=== PATIENT | male | born 1940 | race Caucasian/White ===

== ENCOUNTER → 2016-12-12 | Outpatient (CLI) | payer MEDICARE ==
--- NOTE | 2016-12-12 13:09 | MRI ---
Study: MRI of the right upper arm. Indication: STRAIN OF MUSCLE Technique: Multiplanar, multi sequence MRI of the right upper arm was obtained without intravenous contrast. Comparison: None. Findings: Within the inferior margin of the anterior deltoid musculature there is moderate intramuscular edema adjacent to the myotendinous junction indicating a grade 2 strain. No appreciable tear. This is adjacent to the external skin marker. Intracapsular portion long head biceps tendon is not visualized in the field of view. Intracapsular portion demonstrates tendinosis without appreciable tearing or significant retraction. There is intramuscular edema within the deep aspects of the supraspinatus, infraspinatus, and subscapularis muscle bellies which can indicate muscle strains. Tendinosis and attenuation of the supraspinatus tendon suspected. Examination not optimized to evaluate rotator cuff tendon tearing. Tiny glenohumeral joint effusion. Moderate AC joint osteoarthritis. Impression: Grade 2 strain of the inferior margin anterior deltoid musculature. This is adjacent to the site of external skin marker. Tendinosis of the long head biceps tendon at the intertubercular groove without definitive tear. Correlation with MRI of the right shoulder recommended to evaluate the intracapsular portion. Supraspinatus tendinosis and attenuation as well as intramuscular edema within the rotator cuff musculature. Correlation with dedicated MRI of the right shoulder recommended to better evaluate. Electronically signed by: Marvel Montano MD 12/12/2016 1:07 PM CDT
== END | disposition home or self-care (01) ==
LOC: MRI 08:55
PROVIDERS: ATTEND Family Medicine
DX: M75.21 Bicipital tendinitis, right shoulder (principal)

== ENCOUNTER 2017-05-12 12:40 | Emergency (ER) | payer MEDICARE ==
[2017-05-12 13:01] VITALS: TEMP 98.7
[2017-05-12] MEDS ORDERED: SULFA/TRIMETH 800/160 (DS) TAB 1 EA TAB PO ONE (14:37)
--- NOTE | 2017-05-12 14:40 | ED.PDOC ---
History of Present Illness - General Chief Complaint: Trauma Stated Complaint: fall Time Seen by Provider: 05/12/17 12:42 Source: patient Exam Limitations: no limitations - History of Present Illness Initial Comments: the patient is a 76-year-old male that got a little dizzy while getting up from the toilet. e did not pass out but he did fall scraping his right upper arm and a 1 inch skin tear in his left arm posteriorly extensively. The patient has 5 different skin tears along his left arm. He also has several areas of ecchymosis where family tried to pick him up. He only takes Plavix as a blood thinner. Tilt vitals are negative here today. He is in normal sinus rhythm. He is not dizzy. He is not feeling weak. He has lost probably 20 cc of blood since arrivalfrom his skin tears. He moves his extremities well. No evidence of fracture or dislocation. He is alert and oriented. He does have some mobility issues to start with. Timing/Duration: momentarily Severity: mild Improving Factors: nothing Worsening Factors: nothing Associated Symptoms: denies symptoms Allergies/Adverse Reactions: Allergies NO KNOWN ALLERGY Allergy (Verified 05/12/17 13:01) Home Medications: Ambulatory Orders Glipizide [Glipizide ER] 10 mg PO BID 05/06/14 Insulin Detemir [Levemir] 47 unit SUBCU BID 05/06/14 Insulin Lispro (Human) [Humalog] 14 unit SC TID 05/06/14 Liraglutide [Victoza] 1.8 mg SC DAILY 05/06/14 Metoprolol Succinate [Metoprolol Succinate ER] 100 mg PO DAILY 05/06/14 Tamsulosin [Flomax] 0.4 mg PO QD 05/06/14 Sulfa/Trimeth 800/160 (Ds) Tab [Bactrim DS Tab] 1 ea PO DAILY #5 tab 05/12/17 Review of Systems - Review of Systems Constitutional: States: no symptoms reported EENTM: States: no symptoms reported Respiratory: States: no symptoms reported Cardiology: States: no symptoms reported Gastrointestinal/Abdominal: States: no symptoms reported Genitourinary: States: no symptoms reported Musculoskeletal: States: other - chronic arthritic changes limiting mobility Skin: States: see HPI Neurological: States: no symptoms reported - transient dizziness as above Endocrine: States: no symptoms reported Hematologic/Lymphatic: States: easy bruising All other Systems: No Change from Baseline Past Medical History (General) - Patient Medical History Hx Seizures: No Hx Stroke: Yes Hx Dementia: No Hx Asthma: No Hx of COPD: No Hx Cardiac Disorders: No Hx Congestive Heart Failure: No Hx Pacemaker: No Hx Hypertension: Yes Hx Thyroid Disease: No Hx Diabetes: Yes Hx Gastroesophageal Reflux: No Hx Renal Disease: Yes Hx Cancer: Yes - renal canceer Hx of HIV: No Hx Hepatitis C: No Hx MRSA: No Surgical History: other - Vaccination History Hx Tetanus, Diphtheria Vaccination: No Hx Influenza Vaccination: Yes Hx Pneumococcal Vaccination: Yes - Social History Hx Tobacco Use: Yes Hx Chewing Tobacco Use: Yes - 1 can/week Hx Alcohol Use: Yes Hx Substance Use: No Hx Substance Use Treatment: No Hx Depression: No Hx Physical Abuse: No Hx Emotional Abuse: No Hx Suspected Abuse: No - Female History Patient : No Family Medical History - Family History Mother Living Status: Hx Cardiac Disease: Yes Hx Family Diabetes: Yes Father Living Status: Hx Family;Other: emphazema Physical Exam - Physical Exam General Appearance: Alert, Comfortable, No apparent distress Eye Exam: bilateral normal Ears, Nose, Throat: hearing grossly normal - he does hearbut I do suspect that he does have a slight hearing deficit, normal ENT inspection Neck: full range of motion, supple Respiratory: lungs clear, normal breath sounds, no respiratory distress, no accessory muscle use Cardiovascular/Chest: normal peripheral pulses, regular rate, rhythm, other - telemetry monitoring shows normal sinus rhythm Peripheral Pulses: radial,right: 2+, radial,left: 2+, dorsalis pedis,right: 2+, dorsalis pedis,left: 2+ Gastrointestinal/Abdominal: non tender - obese, soft Rectal Exam: deferred Back Exam: normal inspection - with the exception of the ecchymosis to the left posterior shoulder where they tried to lift him, no CVA tenderness, no vertebral tenderness Extremity: pedal edema - 2+ to bilateral lower extremities which is apparently not new 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 See history of present illness. Comments: Vital Signs - 24 hr 05/12/17 05/12/17 05/12/17 12:47 13:35 13:39 Temperature 98.7 F Pulse Rate [ 73 75 80 pulse ox] Respiratory 20 Rate Blood Pressure 147/73 123/51 139/71 [right arm] O2 Sat by Pulse 99 98 99 Oximetry 05/12/17 13:43 Temperature Pulse Rate [ 83 pulse ox] Respiratory Rate Blood Pressure 130/89 [right arm] O2 Sat by Pulse Oximetry Progress - Progress Progress: 05/12/17 14:41 the patient presents with multiple skin tears after a fall at home. No evidence of more significant musculoskeletal trauma. The patient does have significant oozing from the skin tear secondary to the Plavix. He needs to hold the Plavix for the next 48 hours. The patient's wounds were cleaned with hydrogen peroxide and then subsequently cleaned off with normal saline. Skin tears were reapproximated and 5 of them were fixed back in place with Steri- Strips. The skin tear around the elbow has a significant amount of missing skin. A Vaseline gauze was placed over this. Coban wrap over gauze was applied over the wounds to allow for a slight pressure dressing. The patient tolerated the procedure well. Wounds will need to be redressed in 24-48 hours. Steri-Strips will come off in 1-2 weeks on their own. Do not pull them off. The patient is receiving a dose of Bactrim here today for prophylactic purposes. He will be placed on Bactrim daily for 5 days. He should follow up with his primary care doctor towards the end of the week for reevaluation of the wounds. The patient's tilt test was negative today. 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 ER warnings are given for any worsening. Departure - Departure Clinical Impression: Skin tear of elbow without complication Qualifiers: Encounter type: initial encounter Laterality: left Qualified Code(s): S51.012A - Laceration without foreign body of left elbow, initial encounter Fall at home Qualifiers: Encounter type: initial encounter Qualified Code(s): W19.XXXA - Unspecified fall, initial encounter; Y92.099 - Unspecified place in other non-institutional residence as the place of occurrence of the external cause Disposition: Discharge to Home or Self Care Condition: Fair Departure Forms: ED Discharge - Pt. Copy, Patient Portal Self Enrollment Diet: low salt diet Activity: increase activity as tolerated Referrals: Hawk Caldwell MD [Primary Care Provider] - 1-5 Days Prescriptions: Sulfa/Trimeth 800/160 (Ds) Tab [Bactrim DS Tab] 1 ea PO DAILY #5 tab Home Medications: Ambulatory Orders Glipizide [Glipizide ER] 10 mg PO BID 05/06/14 Insulin Detemir [Levemir] 47 unit SUBCU BID 05/06/14 Insulin Lispro (Human) [Humalog] 14 unit SC TID 05/06/14 Liraglutide [Victoza] 1.8 mg SC DAILY 05/06/14 Metoprolol Succinate [Metoprolol Succinate ER] 100 mg PO DAILY 05/06/14 Tamsulosin [Flomax] 0.4 mg PO QD 05/06/14 Sulfa/Trimeth 800/160 (Ds) Tab [Bactrim DS Tab] 1 ea PO DAILY #5 tab 05/12/17 Additional Instructions: the patient presents with multiple skin tears after a fall at home. No evidence of more significant musculoskeletal trauma. The patient does have significant oozing from the skin tear secondary to the Plavix. He needs to hold the Plavix for the next 48 hours. The patient's wounds were cleaned with hydrogen peroxide and then subsequently cleaned off with normal saline. Skin tears were reapproximated and 5 of them were fixed back in place with Steri- Strips. The skin tear around the elbow has a significant amount of missing skin. A Vaseline gauze was placed over this. Coban wrap over gauze was applied over the wounds to allow for a slight pressure dressing. The patient tolerated the procedure well. Wounds will need to be redressed in 24-48 hours. Steri-Strips will come off in 1-2 weeks on their own. Do not pull them off. The patient is receiving a dose of Bactrim here today for prophylactic purposes. He will be placed on Bactrim daily for 5 days. He should follow up with his primary care doctor towards the end of the week for reevaluation of the wounds. The patient's tilt test was negative today. 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 ER warnings are given for any worsening.
[2017-05-12 15:20] VITALS: BP 148/71; O2SAT 95
== END 2017-05-12 15:15 | disposition home or self-care (01) ==
LOC: ER 12:40
DX: S51.012A Laceration without foreign body of left elbow, initial encounter (principal); E11.9 Type 2 diabetes mellitus without complications; I10 Essential (primary) hypertension; Z85.53 Personal history of malignant neoplasm of renal pelvis; Z79.4 Long term (current) use of insulin; Z79.02 Long term (current) use of antithrombotics/antiplatelets; W19.XXXA Unspecified fall, initial encounter; Y92.002 Bathroom of unspecified non-institutional (private) residence as the place of occurrence of the external cause

== ENCOUNTER → 2017-07-15 | Outpatient (CLI) | payer MEDICARE | LOC: GMAB 12:06 | PROVIDERS: ATTEND Family Medicine | DX: I10 Essential (primary) hypertension (principal); E13.59 Other specified diabetes mellitus with other circulatory complications; R30.0 Dysuria; Z12.5 Encounter for screening for malignant neoplasm of prostate | CPT/HCPCS: 84443; 87086; G0103 ==

== ENCOUNTER → 2017-10-20 | Outpatient (CLI) | payer MEDICARE ==
--- NOTE | 2017-10-20 10:41 | RAD ---
EXAM DESCRIPTION: Pelvis CLINICAL HISTORY: 76 years Male, HIP PAIN COMPARISON: None. TECHNIQUE: AP radiograph of the pelvis was performed. FINDINGS: The pelvic ring appears grossly intact on this single AP radiograph. No acute fracture or dislocation. Bilateral sacroiliac joints appear normal. Mild degenerative changes are identified in bilateral hip joints. The visualized lumbo-sacral spine demonstrates mild to moderate degenerative changes. IMPRESSION: Single AP radiograph of the pelvis demonstrates grossly intact pelvic ring. Electronically signed by: Madelyn Tee MD 10/20/2017 10:39 AM CDT
== END ==
LOC: RAD 08:01
PROVIDERS: ATTEND Orthopaedic Surgery
DX: M25.551 Pain in right hip (principal); M25.552 Pain in left hip

== ENCOUNTER 2017-11-17 18:42 | Emergency (ER) | payer MEDICARE ==
--- NOTE | 2017-11-17 19:57 | RAD ---
EXAM DESCRIPTION: Chest,1 View CLINICAL HISTORY: cough COMPARISON: None. FINDINGS: Cardiac silhouette is within normal limits. There is no focal parenchymal or pleural disease. Visualized osseous structures are within normal limits. IMPRESSION: No evidence of acute cardiopulmonary disease. Electronically signed by: Hammad Michael 11/17/2017 7:56 PM CDT
--- NOTE | 2017-11-17 20:22 | ED.PDOC ---
History of Present Illness - General Chief Complaint: General Stated Complaint: WEAKNESS Time Seen by Provider: 11/17/17 19:49 Source: patient, family Exam Limitations: no limitations Additional Information: C/O GENERALIZED WEAKNESS SINCE HE FELL 5-6 DAYS AGO. PROGRESSIVE AND MODERATE IN INTENSITY. NO RELIEVING FACTORS. HAS SORE AREA TO BUTTOCKS WHICH HAS GOTTEN PROGRESSIVELY WORSE. FAMILY IS CONCERNED ABOUT IS PROGRESSIVE DECLINE AND INABLITIY TO PERFORM ADL'S - History of Present Illness Timing/Duration: other - 5 DAYS Severity: moderate Improving Factors: nothing Worsening Factors: other - PROGRESSIVELY WORSENING Associated Symptoms: denies symptoms Allergies/Adverse Reactions: Allergies NO KNOWN ALLERGY Allergy (Verified 05/12/17 13:01) Home Medications: Ambulatory Orders Glipizide [Glipizide ER] 10 mg PO BID 05/06/14 Insulin Detemir [Levemir] 47 unit SUBCU BID 05/06/14 Insulin Lispro (Human) [Humalog] 14 unit SC TID 05/06/14 Liraglutide [Victoza] 1.8 mg SC DAILY 05/06/14 Metoprolol Succinate [Metoprolol Succinate ER] 100 mg PO DAILY 05/06/14 Tamsulosin [Flomax] 0.4 mg PO QD 05/06/14 Sulfa/Trimeth 800/160 (Ds) Tab [Bactrim DS Tab] 1 ea PO DAILY #5 tab 05/12/17 Review of Systems - Review of Systems Constitutional: Denies: chills, fever EENTM: States: no symptoms reported Respiratory: States: cough, other - PROD CLEAR SPUTUM. Denies: short of breath , wheezing Cardiology: States: no symptoms reported. Denies: chest pain, palpitations, syncope Gastrointestinal/Abdominal: States: no symptoms reported. Denies: abdominal pain, nausea, vomiting Genitourinary: States: other - PAIN TO BUTTOCKS. . Denies: dysuria, hematuria Musculoskeletal: Denies: back pain, joint pain, joint swelling, muscle pain, neck pain Skin: States: no symptoms reported Neurological: States: weakness - GENERALIZED Endocrine: States: no symptoms reported Hematologic/Lymphatic: States: no symptoms reported Past Medical History (General) - Patient Medical History Hx Seizures: No Hx Stroke: Yes Hx Dementia: No Hx Asthma: No Hx of COPD: No Hx Cardiac Disorders: No Hx Congestive Heart Failure: No Hx Pacemaker: No Hx Hypertension: Yes Hx Thyroid Disease: No Hx Diabetes: Yes Hx Gastroesophageal Reflux: No Hx Renal Disease: Yes Hx Cancer: Yes - renal canceer Hx of HIV: No Hx Hepatitis C: No Hx MRSA: No - Vaccination History Hx Tetanus, Diphtheria Vaccination: No Hx Influenza Vaccination: Yes Hx Pneumococcal Vaccination: Yes - Social History Hx Tobacco Use: Yes Hx Chewing Tobacco Use: Yes - 1 can/week Hx Alcohol Use: Yes Hx Substance Use: No Hx Substance Use Treatment: No Hx Depression: No Hx Physical Abuse: No Hx Emotional Abuse: No Hx Suspected Abuse: No - Female History Patient : No Family Medical History - Family History Mother Living Status: Hx Cardiac Disease: Yes Hx Family Diabetes: Yes Father Living Status: Hx Family;Other: emphazema Physical Exam - Physical Exam General Appearance: No apparent distress, Obese Eye Exam: bilateral normal Ears, Nose, Throat: hearing grossly normal, normal ENT inspection Neck: non-tender, full range of motion, supple, normal inspection Respiratory: rales - RLL WITH FAINT RUB Cardiovascular/Chest: regular rate, rhythm, no murmur Gastrointestinal/Abdominal: non tender, soft, no organomegaly Rectal Exam: other - 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 Back Exam: normal inspection, no CVA tenderness, no vertebral tenderness Extremity: normal range of motion, non-tender - TR EDEMA Neurologic: alert, normal mood/affect Skin Exam: normal color, warm/dry Lymphatic: no adenopathy Progress - Progress Progress: 11/17/17 22:14 D/W [facility] REC TRANSFER SECONDARY TO K. PT REQ TO GO TO [facility]. WILL TX HYPERKALEMIA 11/17/17 22:17 CALLED [facility], HOSPITALIST TO CALL BACK. 11/17/17 22:49 D/W DR SINGH, ACCEPTS PT IN TRANSFER - EKG/XRAY/CT EKG: Sarthak - RATE 57, LAD, 1ST DEGREE AV BLOCK. , Sinus, no ST T wave changes - NAIP, NO OLD FOR COMPARISON XRAY: chest - CARDIOMEGALY, JUJU. Departure - Departure Clinical Impression: Hyperkalemia, Diabetes 1.5, managed as type 2 Acute kidney failure Qualifiers: Acute renal failure type: unspecified Qualified Code(s): N17.9 - Acute kidney failure, unspecified Hypertension Qualifiers: Hypertension type: essential hypertension Qualified Code(s): I10 - Essential ( primary) hypertension Time of Disposition: 22:51 Disposition: Transfer to Hospital Condition: Fair Departure Forms: ED Discharge - Pt. Copy, Patient Portal Self Enrollment Referrals: Hawk Caldwell MD [Primary Care Provider] - 1-2 Weeks Home Medications: Ambulatory Orders Glipizide [Glipizide ER] 10 mg PO BID 05/06/14 Insulin Detemir [Levemir] 47 unit SUBCU BID 05/06/14 Insulin Lispro (Human) [Humalog] 14 unit SC TID 05/06/14 Liraglutide [Victoza] 1.8 mg SC DAILY 05/06/14 Metoprolol Succinate [Metoprolol Succinate ER] 100 mg PO DAILY 05/06/14 Tamsulosin [Flomax] 0.4 mg PO QD 05/06/14 Sulfa/Trimeth 800/160 (Ds) Tab [Bactrim DS Tab] 1 ea PO DAILY #5 tab 05/12/17 Critical Care Note - Critical Care Note Total Time (mins): 50 Comments: CRITICAL EVENT: RENAL FAILURE WITH HYPERKALEMIA FINDINGS: BUN 92, CR 1.7, K 6.6 SYSTEMS AT RISK: CARDIOVASCULAR INTERVENTION: CALCIUM, BICARB, DEXTROSE, INSULIN TO PREVENT CARDIAC ARRYTHMIAS, ARRANGEMENT FOR TRANSFER.
[2017-11-17 21:29] VITALS: O2SAT 100
[2017-11-17] MEDS ORDERED: INSULIN, REG.(HUMAN) 100 U/ML VIAL IV ONE (22:11)
[2017-11-17] MEDS ORDERED: SODIUM BICARBONATE VIAL 50 MEQ/50 ML VIAL IV ONE (22:11)
[2017-11-17] MEDS ORDERED: DEXTROSE 50% 25 GM/50 ML SYG IV ONE (22:11)
[2017-11-17] MEDS ORDERED: CALCIUM GLUCONATE INJ 1 GM/10 ML VIAL IV ONE (22:11)
[2017-11-17] MEDS ORDERED: SODIUM CHLORIDE 0.9% 100ML 100 ML IVPB ONE (22:38)
[2017-11-17] MEDS ORDERED: SODIUM CHLORIDE 0.9% 1000ML 1,000 ML ONE (23:13)
[2017-11-17 23:19] VITALS: BP 164/70; TEMP 99
== END 2017-11-17 23:33 | disposition short-term general hospital (02) ==
LOC: ER 18:42
DX: N17.9 Acute kidney failure, unspecified (principal); E87.5 Hyperkalemia; I10 Essential (primary) hypertension; E11.9 Type 2 diabetes mellitus without complications; R00.1 Bradycardia, unspecified; I44.0 Atrioventricular block, first degree; I51.7 Cardiomegaly; Z87.891 Personal history of nicotine dependence; Z86.73 Personal history of transient ischemic attack (TIA), and cerebral infarction without residual deficits; Z85.528 Personal history of other malignant neoplasm of kidney; Z79.4 Long term (current) use of insulin; Z79.899 Other long term (current) drug therapy
CPT/HCPCS: 36415; 71045; 80053; 81001; 83605; 85025; 87086; 93005; J7030; J7050; J7799

== ENCOUNTER → 2017-12-09 | Outpatient (CLI) | payer MEDICARE | LOC: NC 15:36 | PROVIDERS: ATTEND Internal Medicine | DX: N18.3 Chronic kidney disease, stage 3 (moderate) (principal) ==

== ENCOUNTER → 2018-01-08 | Outpatient (CLI) | payer MEDICARE | LOC: GMAE 10:27 | PROVIDERS: ATTEND Family Medicine | DX: R06.02 Shortness of breath (principal); R60.0 Localized edema ==

== ENCOUNTER → 2018-02-05 | Outpatient (CLI) | payer MEDICARE ==
--- NOTE | 2018-02-05 11:13 | RAD ---
EXAM DESCRIPTION: Left Shoulder, four x-ray Views CLINICAL HISTORY: PAIN IN LEFT SHOULDER COMPARISON: None Available. TECHNIQUE: Four views of the left shoulder. FINDINGS: There is adequate internal and external rotation. Normal alignment on transscapular Y view. Transaxillary view shows no dislocation. There is no fracture or dislocation. Mild degenerative spurring at the humeral head neck junction and posterior inferior margin of the glenoid. Degenerative narrowing of the acromioclavicular joint is seen. No focal bone lesion. IMPRESSION: Negative for fracture or dislocation. Electronically signed by: Dago Dacosta MD 02/05/2018 11:12 AM CDT
== END ==
LOC: RAD 08:17
PROVIDERS: ATTEND Orthopaedic Surgery
DX: M25.512 Pain in left shoulder (principal)

== ENCOUNTER 2018-03-17 21:27 | Inpatient (IN) | payer MEDICARE ==
[2018-03-17] MEDS ORDERED: ACETAMINOPHEN 325 MG TAB PO ONE (22:00)
[2018-03-17] MEDS ORDERED: cefTRIAXone SODIUM 1 GM in SODIUM CHL 0.9% 50ML MIN-BAG+ 50 ML IVPB ONE (22:03)
[2018-03-17] MEDS ORDERED: cefTRIAXone SODIUM 1 GM VIAL ONE (22:23)
[2018-03-17] MEDS ORDERED: SODIUM CHL 0.9% 50ML MIN-BAG+ 50 ML IVPB ONE (22:23)
--- NOTE | 2018-03-17 22:40 | RAD ---
EXAM DESCRIPTION: Knee,Right 2 or More Views CLINICAL HISTORY: 77 years Male, pain COMPARISON: None. FINDINGS: No fracture or dislocation. Mild medial patellofemoral narrowing. Soft tissues are unremarkable. Vascular calcifications noted. IMPRESSION: No acute abnormality. Electronically signed by: Denny Abarca MD 03/17/2018 10:38 PM CDT
--- NOTE | 2018-03-17 22:40 | RAD ---
EXAM DESCRIPTION: Chest,1 View CLINICAL HISTORY:77 years Male, fever, cough Comparison: November 17, 2017 FINDINGS: No focal lung consolidation. No pleural effusion. No pneumothorax. Cardiac and mediastinal silhouette is unremarkable. No acute osseous abnormality. Soft tissues are unremarkable. IMPRESSION: No acute findings. No focal lung consolidation. Electronically signed by: Denny Abarca MD 03/17/2018 10:38 PM CDT
--- NOTE | 2018-03-17 22:40 | RAD ---
EXAM DESCRIPTION: Hip,Right 2 Views CLINICAL HISTORY: 77 years Male, pain COMPARISON: None. FINDINGS: No fracture or dislocation. Soft tissues are unremarkable. IMPRESSION: No acute abnormality. Electronically signed by: Denny Abarca MD 03/17/2018 10:38 PM CDT
[2018-03-17] MEDS ORDERED: SODIUM CHLORIDE 0.9% 1000ML 500 ML IVS ONE (23:02)
--- NOTE | 2018-03-18 00:07 | CT ---
EXAM DESCRIPTION: Abdoment/Pelvis w/o Contrast CLINICAL HISTORY: 77 years Male, sepsis unknown source COMPARISON: 06/13/2010 TECHNIQUE: Contiguous axial CT images of the abdomen and pelvis were acquired without administration of intravenous contrast. Coronal and sagittal reformatted images are provided. This exam was performed according to our departmental dose-optimization program which includes use of Automated Exposure Control, adjustment of the mA and/or kV according to patient size and/or use of iterative reconstruction technique. FINDINGS: Chest base: Right lower lobe airspace consolidation. Liver: Unremarkable. Gallbladder: Prior cholecystectomy. Spleen: Unremarkable. Adrenals: Unremarkable. Pancreas: Unremarkable. Right Kidney: Surgically absent. Left Kidney: A 5 mm stone is seen within the distal left ureter, image 66 series 2. There is no significant hydronephrosis. Aorta and branch vessels: Moderate calcific atherosclerosis of the aortoiliac vessels. Lymph nodes: No lymphadenopathy. Bowels: No obstruction. Colon: Scattered colonic diverticula. Appendix: Normal. Peritoneum: No free air or free fluid. Reproductive organs: Unremarkable. Bladder: Unremarkable. Bones and soft tissues: No acute osseous or soft tissue abnormalities. Fat-containing left inguinal hernia. IMPRESSION: Right lower lobe pneumonia. 5 mm stone within the distal left ureter without hydronephrosis. Although there are no current findings to suggest obstruction, urological consultation is recommended as this is the patient's only remaining kidney. Critical findings discussed with Dr. Roach by Calderon Davis MD at 03/18/2018 12:05 AM CDT by phone. Electronically signed by: Calderon Davis MD 03/18/2018 12:05 AM CDT
[2018-03-18] MEDS ORDERED: AZITHROMYCIN IV 500 MG in SODIUM CHLORIDE 0.9% 250ML 250 ML IVPB ONE (00:09)
[2018-03-18] MEDS ORDERED: AZITHROMYCIN IV 500 MG VIAL IVPB ONE ×2 (00:15→23:42)
[2018-03-18] MEDS ORDERED: SODIUM CHLORIDE 0.9% 250ML 250 ML ONE ×2 (00:16→23:42)
--- NOTE | 2018-03-18 00:29 | ED.PDOC ---
History of Present Illness - General Chief Complaint: General Stated Complaint: generalized weakness Time Seen by Provider: 03/17/18 21:46 Source: patient, family Exam Limitations: no limitations - History of Present Illness Initial Comments: the patient is a 77-year-old male presenting to the emergency room secondary to progressive weakness over the last 12 hours. It is not significantly worse over the last several hours when he started developing a fever. He is having increasing pain in his joints as well. No real cough or shortness of breath but increased dyspnea with exertion. The patient fell 2 weeks ago and sustained significant bruise to his right buttock area and the bruising has tracked down his right leg. 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 He has had a history of urinary tract infections. He is not hypoxic. He is alert and oriented. He is however weak enough currently that he cannot function on his own. Timing/Duration: 4-6 hours Severity: moderate Improving Factors: nothing Worsening Factors: nothing Associated Symptoms: diaphoresis, fever/chills, loss of appetite, malaise, weakness Allergies/Adverse Reactions: Allergies NO KNOWN ALLERGY Allergy (Verified 03/17/18 22:54) Home Medications: Ambulatory Orders Glipizide [Glipizide ER] 10 mg PO BID 05/06/14 Insulin Lispro (Human) [Humalog] 14 unit SC TID 05/06/14 Metoprolol Succinate [Metoprolol Succinate ER] 100 mg PO DAILY 05/06/14 Tamsulosin [Flomax] 0.4 mg PO QD 05/06/14 Acetaminophen [Tylenol] 500 mg PO PRN 03/17/18 Aspirin [Aspirin Childrens] 81 mg PO DAILY 03/17/18 Enalapril Maleate 10 mg PO DAILY 03/17/18 Furosemide Tab [Lasix Tab] 40 mg PO BID 03/17/18 Insulin Glargine [Toujeo Solostar] 50 units SC BID 03/17/18 Primidone [Primidone] 250 mg PO DAILY 03/17/18 Review of Systems - Review of Systems Constitutional: States: chills, diaphoresis, fever, malaise EENTM: States: nose congestion Respiratory: States: short of breath - primarily with exertion today Cardiology: States: edema Gastrointestinal/Abdominal: States: no symptoms reported - chronic Genitourinary: States: no symptoms reported Musculoskeletal: States: joint pain Skin: States: no symptoms reported Neurological: States: tremors - chronic, weakness - generalized Endocrine: States: no symptoms reported All other Systems: No Change from Baseline Past Medical History (General) - Patient Medical History Hx Seizures: No Hx Stroke: Yes Hx Dementia: No Hx Asthma: No Hx of COPD: No Hx Cardiac Disorders: Yes - stent to left knee Hx Congestive Heart Failure: No Hx Pacemaker: No Hx Hypertension: Yes Hx Thyroid Disease: No Hx Diabetes: Yes Hx Gastroesophageal Reflux: No Hx Renal Disease: Yes Hx Cancer: Yes - renal canceer Hx of HIV: No Hx Hepatitis C: No Hx MRSA: No Surgical History: cancer surgery, other - Vaccination History Hx Tetanus, Diphtheria Vaccination: No Hx Influenza Vaccination: No Hx Pneumococcal Vaccination: Yes - Social History Hx Tobacco Use: Yes Hx Chewing Tobacco Use: Yes - 1 can/week Hx Alcohol Use: No Hx Substance Use: No Hx Substance Use Treatment: No Hx Depression: No Hx Physical Abuse: No Hx Emotional Abuse: No Hx Suspected Abuse: No - Female History Patient : No - Triage Comment ED Triage Comment: Pt daughter stated he suddenly became very weak this evening. Most part of today he had stated he was not feeling well. Pt was unable to stand on his own to get into wheelchair, assistance required. Pt has a wet cough, skin warm to touch, and has a linear purple bruise up his rt calf and thigh. Rt lower leg with 3+ pitting edema. Family Medical History - Family History Mother Living Status: Hx Cardiac Disease: Yes Hx Family Diabetes: Yes Father Living Status: Hx Family;Other: emphazema Physical Exam - Physical Exam General Appearance: Alert, Ill Appearing Eye Exam: bilateral normal Ears, Nose, Throat: hearing grossly normal, pharyngeal erythema - mild Neck: full range of motion, supple Respiratory: lungs clear, normal breath sounds, no respiratory distress, no accessory muscle use Cardiovascular/Chest: normal peripheral pulses, tachycardia Peripheral Pulses: radial,right: 2+, radial,left: 2+, dorsalis pedis,right: 2+, dorsalis pedis,left: 2+ Gastrointestinal/Abdominal: non tender - morbidly obese, soft Rectal Exam: deferred Back Exam: other - he does have bruising to the right buttock area that tracks down his right leg. Extremity: normal range of motion, normal capillary refill, pedal edema Neurologic: toll gate tender II-XII nml as tested, alert, normal mood/affect, oriented x 3 Skin Exam: normal color - with the exception of the bruising to the right lower extremity Comments: Vital Signs - 24 hr 03/17/18 03/17/18 03/17/18 21:40 22:01 22:52 Temperature 101.2 F H Pulse Rate [ 112 H 112 H 98 H left] Respiratory 24 24 24 Rate Blood Pressure 146/74 130/84 [left] O2 Sat by Pulse 92 L 95 Oximetry Progress - Progress Progress: 03/18/18 00:32 the patient is 77-year-old male presenting to the emergency room secondary to progressive fever and generalized weakness today. It appears the patient has become septicemic from a developing right lower lobe pneumonia. He has received a dose of Rocephin and azithromycin and has received a blood culture. He is not hypoxic. He has a high probability of deterioration based on his comorbidities. He is currently unable to perform his activities of daily living secondary to weakness. The patient does have some chronic renal insufficiency. He does have a 5 mm nonobstructing ureteral stone in his remaining ureter. If his renal function appears to be deteriorating then reevaluation of that may be warranted. He does appear to be putting out urine just fine currently. He has received 500 cc of normal saline. - Results/Orders Results/Orders: Vital Signs - 24 hr 03/17/18 03/17/18 03/17/18 21:40 22:01 22:52 Temperature 101.2 F H Pulse Rate [ 112 H 112 H 98 H left] Respiratory 24 24 24 Rate Blood Pressure 146/74 130/84 [left] O2 Sat by Pulse 92 L 95 Oximetry Laboratory Tests 03/17/18 03/17/18 03/17/18 22:18 22:18 22:18 WBC 20.3 H* RBC 5.21 Hgb 15.1 Hct 45.0 MCV 86.3 MCH 29.0 MCHC 33.6 RDW 15.6 H Plt Count 232 MPV 8.3 Absolute Neuts (auto) 17.40 H Absolute Lymphs (auto) 1.10 Absolute Monos (auto) 1.60 H Absolute Eos (auto) 0.00 Absolute Basos (auto) 0.20 H Neutrophils % 85.7 H Neutrophils % (Manual) 83.0 H Lymphocytes % 5.4 L Lymphocytes % (Manual) 10.0 Monocytes % 8.0 Eosinophils % 0.2 L Basophils % 0.7 Band Neutrophils 7.0 H Platelet Estimate Normal PT 10.4 INR 1.04 PTT (SP) 21.6 L Sodium 135 Potassium 4.2 Chloride 102 Carbon Dioxide 23 Anion Gap 14.2 BUN 51 H Creatinine 1.18 BUN/Creatinine Ratio 43.2 H Random Glucose 120 H Serum Osmolality 285.0 Lactic Acid Calcium 9.1 Magnesium 2.1 Total Bilirubin 0.5 AST 14 ALT 13 Alkaline Phosphatase 68 Creatine Kinase 21 L CK-MB (CK-2) 1.6 CK-MB (CK-2) % Not Reportable Troponin I 0.02 Serum Total Protein 6.7 Albumin 3.5 Globulin 3.2 Albumin/Globulin Ratio 1.1 Urine Color Urine Appearance Urine pH Ur Specific Mcclelland Urine Protein Urine Glucose (UA) Urine Ketones Urine Blood Urine Nitrite Urine Bilirubin Urine Urobilinogen Ur Leukocyte Esterase Urine RBC Urine WBC Ur Epithelial Cells Urine Bacteria 03/17/18 03/17/18 22:18 Unknown WBC RBC Hgb Hct MCV MCH MCHC RDW Plt Count MPV Absolute Neuts (auto) Absolute Lymphs (auto) Absolute Monos (auto) Absolute Eos (auto) Absolute Basos (auto) Neutrophils % Neutrophils % (Manual) Lymphocytes % Lymphocytes % (Manual) Monocytes % Eosinophils % Basophils % Band Neutrophils Platelet Estimate PT INR PTT (SP) Sodium Potassium Chloride Carbon Dioxide Anion Gap BUN Creatinine BUN/Creatinine Ratio Random Glucose Serum Osmolality Lactic Acid 1.6 Calcium Magnesium Total Bilirubin AST ALT Alkaline Phosphatase Creatine Kinase CK-MB (CK-2) CK-MB (CK-2) % Troponin I Serum Total Protein Albumin Globulin Albumin/Globulin Ratio Urine Color Yellow Urine Appearance Clear Urine pH 5.0 Ur Specific Mccle[place]and 1.010 Urine Protein Negative Urine Glucose (UA) Negative Urine Ketones Negative Urine Blood Negative Urine Nitrite Negative Urine Bilirubin Negative Urine Urobilinogen 0.2 Ur Leukocyte Esterase Trace H Urine RBC 1-3 Urine WBC 5-10 H Ur Epithelial Cells 3-5 Urine Bacteria 1+ chest x-ray shows no obvious infiltrates. CT scan of the abdomen and pelvis shows a right lower lobe infiltrate developing. Additionally the patient has a 5 mm nonobstructing stone in the distal remaining ureter. No evidence of hydronephrosis. No evidence of hydroureter. Departure - Departure Clinical Impression: Septicemia Right lower lobe pneumonia Qualifiers: Pneumonia type: due to unspecified organism Qualified Code(s): J18.1 - Lobar pneumonia, unspecified organism Disposition: Admit Patient Condition: Fair Referrals: Hawk Caldwell MD [Primary Care Provider] - 1-2 Weeks Home Medications: Ambulatory Orders Glipizide [Glipizide ER] 10 mg PO BID 05/06/14 Insulin Lispro (Human) [Humalog] 14 unit SC TID 05/06/14 Metoprolol Succinate [Metoprolol Succinate ER] 100 mg PO DAILY 05/06/14 Tamsulosin [Flomax] 0.4 mg PO QD 05/06/14 Acetaminophen [Tylenol] 500 mg PO PRN 03/17/18 Aspirin [Aspirin Childrens] 81 mg PO DAILY 03/17/18 Enalapril Maleate 10 mg PO DAILY 03/17/18 Furosemide Tab [Lasix Tab] 40 mg PO BID 03/17/18 Insulin Glargine [Toujeo Solostar] 50 units SC BID 03/17/18 Primidone [Primidone] 250 mg PO DAILY 03/17/18 Decision To Admit - Decistion To Admit Decision to Admit Reason: Medical Nature Decision to Admit Date: 03/18/18 Decision to Admit Time: 00:35
--- NOTE | 2018-03-18 00:49 | HP ---
SUPERVISING PHYSICIAN: Calderon Barbour MD CHIEF COMPLAINT: Shortness of breath. HISTORY OF PRESENT ILLNESS: This is a 77-year-old male patient who presented to the Emergency Room with progressive weakness over 12 hours prior to his admission. He has been increasingly weak over the last few days, but the significant changes were over the previous 12 hours. He developed a fever. He had joint pains and he had increased dyspnea with any exertion. The patient did fall two weeks ago and sustained a significant bruise to his right buttocks area and the bruising tracked down his right leg. Other than that, he has had no problems lately. He does have only one kidney as he had his right kidney removed due to renal carcinoma. In the Emergency Room, his vital signs showed a temperature of 101.2 with heart rate as high as 112. Blood pressure was 146/ 74. Respiratory rate 24. O2 saturation 92% on room air. Laboratory showed a white count of 20,300 with hemoglobin 15.1 and hematocrit 45. He had a left shift on differential. Electrolytes were basically within normal limits. Glucose was slightly high at 120 with BUN 51, creatinine 1.18. Cardiac enzymes were negative. Urinalysis showed a trace of urine leukocyte esterase and 5 to 10 urine WBCs. Blood cultures were obtained. He was given some fluids as well as started on Rocephin and azithromycin. Chest x-ray showed no acute findings and no focal lung consolidation. His right hip x-ray showed no acute abnormality. His right knee x-ray showed no acute abnormality. CT of the abdomen and pelvis showed a right lower lobe pneumonia and a 5 mm stone within the distal left ureter without hydronephrosis and no current findings to suggest obstruction. Urological consultation is recommended as this is the patient's only remaining kidney. He was also given breathing treatments and I was called for hospital admission. PAST MEDICAL HISTORY: 1. Type 2 diabetes mellitus. 2. Hyperlipidemia. 3. Hypertension. 4. Obesity. 5. Osteoarthritis. 6. Renal carcinoma with right nephrectomy. 7. Obstructive sleep apnea. PAST SURGICAL HISTORY: 1. Lumbar disc surgery. 2. Right nephrectomy. OUTPATIENT MEDICATIONS: Per the EMR and awaiting verification. ALLERGIES: METFORMIN. SOCIAL HISTORY: He lives in [place]. He quit smoking at age 53. He drinks alcohol very infrequently. He denies any illicit drug use. REVIEW OF SYSTEMS: GENERAL: Negative for fever, fatigue or weight changes. HEENT: Positive for nose congestion. Negative for ear pain, vision changes or sore throat. RESPIRATORY: Positive for shortness of breath especially with exertion. Negative for wheezing, coughing. CARDIAC: Negative for chest pain, palpitations or tachycardia. GASTROINTESTINAL: Negative for nausea, vomiting, diarrhea, constipation or abdominal pain. GENITOURINARY: Negative for hematuria, dysuria or polyuria, but he has a history of frequent urinary tract infections. MUSCULOSKELETAL: Positive for joint pain. Negative for low back pain or myalgias. SKIN: Negative for lesions or rashes. NEUROLOGIC: Positive for tremors, weakness that is mostly chronic in nature. Negative for headache or seizures. EXTREMITIES: Positive for trace pedal edema. PHYSICAL EXAMINATION: VITAL SIGNS: Afebrile. Heart rate 78. Blood pressure 163/75. Respiratory rate 10. O2 saturation 98%. GENERAL: This is an obese 77-year-old male patient who is lying in his hospital bed. He is in mild respiratory distress. HEENT: Normocephalic, atraumatic. Pupils are equal and reactive. Oropharynx is clear. NECK: Supple without mass. RESPIRATORY: Bilateral rhonchi throughout, but no wheezing noted. He is slightly tachypneic at times and he does speak in short phrases due to dyspnea. CARDIOVASCULAR: Regular rate and rhythm. GASTROINTESTINAL: Abdomen is soft, nondistended, nontender. He is morbidly obese. RECTAL: Deferred. EXTREMITIES: No cyanosis, clubbing. Trace pedal edema. Bilateral pedal pulses +2. SKIN: Warm and dry. LABORATORY: Labs and films are as per history of present illness, but is AM lab shows electrolytes within normal limits. BUN has improved to 48 with a creatinine 1.21. Glucose 50. Lactic acid 1.6. WBCs dropped to 16,900, hemoglobin 15.4, hematocrit 46.4 and he has a left shift on differential. Chest x-ray this morning shows right basilar atelectasis and/or infiltrate and no other significant interval change. All other labs and films have been reviewed via the EMR. IMPRESSION: 1. Sepsis due to right lower lobe pneumonia, community acquired, with admission temperature of 101.2, heart rate 112, respiratory rate 22 and WBCs 20,300. 2. Nephrolithiasis with a 5 mm stone within the distal left ureter without hydronephrosis and history of right nephrectomy due to renal carcinoma. 3. Diabetes mellitus, type 2. 4. Progressive weakness with fever and dyspnea with exertion, most likely related to #1. 5. Hypertension. 6. History of renal carcinoma with right nephrectomy. 7. Osteoarthritis. 8. Obstructive sleep apnea. 9. Depression. PLAN: We will admit the patient to the hospital. I have initiated pneumonia guidelines. He is on proton pump inhibitor for ulcer prophylaxis as well as Lovenox for DVT prophylaxis. I started him on accuchecks with a.c. and h.s. blood sugars and sliding scale insulin coverage. I will also start him on some Mucinex. I will repeat his labs in the morning. Encourage good pulmonary hygiene. His home medications will be restarted as soon as those are verified. Dr. Yoder, his primary care physician, saw him this morning and felt that he was depressed, so I started him on Zoloft. He can have that titrated up at his followup primary care physician appointment. Dr. Davila has been consulted for the nephrolithiasis and he will see him this afternoon. We will continue to monitor the patient closely and follow as needed. Dr. Barbour is the collaborating physician and available for consultation. [facility][id number] [facility]
[2018-03-18] MEDS ORDERED: NYSTATIN POWDER 15GM BTTL TOP ONE (01:10)
[2018-03-18] MEDS ORDERED: ALBUTEROL SULFATE 2.5 MG/3 ML VIAL NEB PRN (02:05)
[2018-03-18] MEDS ORDERED: SODIUM CHLORIDE 0.9% (FLUSH) 10 ML SYG IV PRN (02:05)
[2018-03-18] MEDS ORDERED: GLUCAGON INJ 1 MG VIAL SUBCU PRN (02:05)
[2018-03-18] MEDS ORDERED: DEXTROSE 50% 25 GM/50 ML SYG IV PRN (02:05)
[2018-03-18] MEDS: KCL 20MEQ/0.45% NS 1,000 ML IVS PRN ×2 (02:42→17:01)
[2018-03-18] MEDS: IV SET AND CAP CHANGE INJ INJ SCH (03:07)
[2018-03-18] MEDS: PANTOPRAZOLE SODIUM IV 40 MG VIAL IV SCH (06:28)
--- NOTE | 2018-03-18 07:11 | RAD ---
Procedure: XR CHEST 1 VIEW Exam Date: 03/18/2018 Ordering Provider: Micah Lenz NP Clinical Indication: Pneumonia Comparison: 03/17/2018 Findings: Borderline cardiomegaly. Aortic calcification. Right basilar atelectasis and/or infiltrate. Left basilar subsegmental atelectasis. No significant pleural effusion. No pneumothorax. No acute osseous abnormality. Impression: 1. Right basilar atelectasis and/or infiltrate. 2. No other significant interval change. Electronically signed by: Patrick Roman MD 03/18/2018 7:10 AM CDT
[2018-03-18] MEDS ORDERED: MAGNESIUM HYDROXIDE 30 ML UD PO ONE (08:32)
[2018-03-18] MEDS ORDERED: IPRATROPIUM/ALBUTEROL 3 ML VIAL NEB ONE (08:41)
[2018-03-18] MEDS: IPRATROPIUM/ALBUTEROL 3 ML VIAL INH SCH ×4 (08:50→21:00)
[2018-03-18] MEDS ORDERED: SERTRALINE HCL 50 MG TAB PO SCH (09:00)
[2018-03-18] MEDS: INSULIN LISPRO 100 UNITS/ML PEN SUBCU SCH ×4 (09:11→22:04)
[2018-03-18] MEDS: NYSTATIN POWDER 15GM BTTL TOP SCH ×4 (09:12→20:45)
[2018-03-18] MEDS: SODIUM CHLORIDE 0.9% (FLUSH) 10 ML SYG IV SCH ×2 (09:14→20:44)
[2018-03-18] MEDS ORDERED: NON-FORMULARY MEDICATION 1 EA MIS (Enalapril Maleate [Enalapril Maleate] 10 MG) PO SCH (11:45)
[2018-03-18] MEDS: METOPROLOL SUCCINATE XL 100 MG TAB PO SCH (12:22)
[2018-03-18] MEDS: TAMSULOSIN 0.4 MG CAP PO SCH (12:36)
[2018-03-18] MEDS: guaiFENesin ER TAB 600 MG TAB PO SCH ×2 (12:39→20:43)
--- NOTE | 2018-03-18 15:45 | CONS ---
DATE OF CONSULTATION: 03/18/18 HISTORY OF PRESENT ILLNESS: Mr. Paul is a 77 year-old white male who was admitted with right lower lobe pneumonia. He has morbid obesity and other co- morbidities. He has a solitary left kidney. Apparently on CT scan he was found to have about a 5 mm left distal ureteral calculus without obstruction. I reviewed the CT scan and he had a little mild ureterectasis but really no pyelocaliectasis on that side. What I did note also is that his bladder was markedly distended up to his umbilicus. The patient has prostatic enlargement. The patient has been having some urinary incontinence issues. The patient denies any discomfort with voiding. He is still putting out moderate urinary output. BUNs have been in the upper 40 and low 50 range with creatinines in the mid 1 range. PHYSICAL EXAMINATION: GENERAL: The patient's examination today suggests and elderly gentleman who is sitting in a chair resting quietly. Once again he has morbid obesity. Seems to have normal respirations at this time. He is alert and talkative. ABDOMEN: Aside from his obesity, he does not demonstrate tenderness. EXTREMITIES: Really only very scant pedal edema if any noted. He has SCDs overlying. IMPRESSION: 1. Left distal 5 mm ureteral stone without obstruction. Maybe a little ureterectasis but really no hydronephrosis on that side. 2. Markedly distended bladder and evidence of urinary retention on that basis. 3. Moderate prostatic enlargement. 4. Solitary left kidney. 5. Morbid obesity. 6. Right lower lobe pneumonia. RECOMMENDATIONS: For now, I would suggest only placement of Alcantara catheter in the patient to relieve his urinary retention. I would suggest also monitoring his urine outputs, BUN and creatinines. If there is an acute change in his urine output, i.e., if he becomes anuric, then the patient would need a left nephrostomy tube placed to relieve his stone obstruction. Again, there is no evidence of a stone obstruction at this point but I cannot exclude the possibility of that happening in the future. Otherwise I would recommend the patient followup with his regular urologist, Dr. Hung, in the next several weeks after his hospitalization. I would recommend that he go home with his Alcantara catheter. One final note is I have reviewed through the hospital records today. #[id number] [facility]
[2018-03-18] MEDS: ACETAMINOPHEN 325 MG TAB PO PRN (17:02)
[2018-03-18] MEDS ORDERED: SODIUM CHL 0.9% 50ML MIN-BAG+ 50 ML IVPB ONE (20:39)
[2018-03-18] MEDS ORDERED: cefTRIAXone SODIUM 1 GM VIAL ONE (20:40)
[2018-03-18] MEDS: ENOXAPARIN SODIUM 40 MG/0.4 ML SYG SUBCU SCH (20:44)
[2018-03-18] MEDS: FUROSEMIDE 40 MG TAB PO SCH (20:44)
[2018-03-18] MEDS: INSULIN GLARGINE 50 UNIT SC SCH (22:05)
[2018-03-18] MEDS: cefTRIAXone SODIUM 1 GM in SODIUM CHL 0.9% 50ML MIN-BAG+ 50 ML IVPB SCH (22:06)
[2018-03-19] MEDS: AZITHROMYCIN IV 500 MG in SODIUM CHLORIDE 0.9% 250ML 250 ML IVPB SCH (02:07)
[2018-03-19] MEDS: PANTOPRAZOLE SODIUM IV 40 MG VIAL IV SCH (06:04)
[2018-03-19] MEDS: INSULIN LISPRO 100 UNITS/ML PEN SUBCU SCH ×4 (07:19→21:38)
[2018-03-19] MEDS: KCL 20MEQ/0.45% NS 1,000 ML IVS PRN (07:26)
[2018-03-19] MEDS: IPRATROPIUM/ALBUTEROL 3 ML VIAL INH SCH ×4 (08:12→20:48)
[2018-03-19] MEDS ORDERED: PRIMIDONE 250 MG PO SCH (09:00)
--- NOTE | 2018-03-19 09:04 | RAD ---
Procedure: XR CHEST 1 VIEW Exam Date: 03/19/2018 Ordering Provider: MIRA CALHOUN Clinical Indication: pna Comparison: 03/18/2018 Findings: Borderline cardiomegaly. Aortic calcification. Right basilar atelectasis and/or infiltrate. Left basilar subsegmental atelectasis. No significant pleural effusion. No pneumothorax. No acute osseous abnormality. Impression: 1. Right basilar atelectasis and/or infiltrate, not significantly changed from prior. Electronically signed by: Patrick Roman MD 03/19/2018 8:45 AM CDT
[2018-03-19] MEDS: METOPROLOL SUCCINATE XL 100 MG TAB PO SCH (09:07)
[2018-03-19] MEDS: PRIMIDONE 50 MG TAB PO SCH (09:08)
[2018-03-19] MEDS: ENALAPRIL MALEATE 5 MG TAB PO SCH (09:10)
[2018-03-19] MEDS: guaiFENesin ER TAB 600 MG TAB PO SCH ×2 (09:11→21:43)
[2018-03-19] MEDS: FUROSEMIDE 40 MG TAB PO SCH ×2 (09:13→21:42)
[2018-03-19] MEDS: TAMSULOSIN 0.4 MG CAP PO SCH (09:13)
[2018-03-19] MEDS: NYSTATIN POWDER 15GM BTTL TOP SCH ×4 (09:13→21:43)
[2018-03-19] MEDS ORDERED: MAGNESIUM HYDROXIDE 30 ML UD PO PRN (10:21)
--- NOTE | 2018-03-19 10:40 | PN ---
SUPERVISING PHYSICIAN: Calderon Barbour MD DATE: 03/19/18 SUBJECTIVE: The patient is sitting up in bed and watching television. He still feels quite weak, but his shortness of breath is improved since yesterday. He saw Dr. Davila yesterday and asked if he could see Dr. Davila in followup as Dr. Hung requires him to go [place]. I told him I would try to get him a followup appointment with Dr. Davila. He also understands he will have to keep his Alcantara catheter until he sees Dr. Davila and I assured him that [facility] with assist with his catheter care. He denies any chest pain, nausea, vomiting, diarrhea or constipation. OBJECTIVE: VITAL SIGNS: Afebrile. Heart rate 65. Blood pressure 154/79. Respiratory rate 18. O2 saturation 95% on room air. RESPIRATORY: Diminished breath sounds throughout all lung arredondo, but no wheezing and a few scattered rhonchi. CARDIAC: Regular rate and rhythm. GASTROINTESTINAL: Abdomen is soft, nondistended. He is obese. Bowel sounds are positive. He does have a Alcantara catheter in place draining clear yellow urine. EXTREMITIES: Trace of pedal edema, but no cyanosis or clubbing. Pedal pulses are palpable at +2. NEUROLOGIC: Awake, alert and oriented times three. LABORATORY: WBCs have improved to 9.6 with hemoglobin 14, hematocrit 41.5. He does have a left shift on differential. His blood sugars have run between 50 and 190. His sodium is slightly low at 133 with potassium 4.9, chloride 104, carbon dioxide 21, BUN 35, creatinine 0.99. Sputum culture is pending. Preliminary blood cultures show no growth after 24 hours. Chest x-ray shows right basilar atelectasis and/or infiltrate, not significantly changed from prior. There was a medical consultation from Dr. Luis Davila, urologist, yesterday that said he had a left distal 5 mm ureteral stone without obstruction with markedly distended bladder and evidence of urinary retention and moderate prostate enlargement with a solitary left kidney. He suggested placement of a Alcantara catheter to relieve the patient's urinary retention and monitoring his urine output, BUN and creatinine and if there is an acute change in his urine output or if he becomes anuric, then the patient would need a left nephrostomy tube placed to relieve his stone obstruction. He also recommended the patient keep his Alcantara catheter until he has followup with urology. All other labs and films have been reviewed via the EMR. ASSESSMENT: 1. Sepsis due to right lower lobe pneumonia, community acquired, with admission temperature of 101.2, heart rate 112, respiratory rate 22 and WBCs 20,300. 2. Nephrolithiasis with a 5 mm stone within the distal left ureter without hydronephrosis and history of right nephrectomy due to renal carcinoma. The patient was examined by Dr. Luis Davila, urologist, on the date of admission. 3. Diabetes mellitus, type 2. 4. Progressive weakness with fever and dyspnea with exertion, most likely related to #1. 5. Hypertension. 6. History of renal carcinoma with right nephrectomy. 7. Osteoarthritis. 8. Obstructive sleep apnea. 9. Depression. PLAN: We will continue present supportive care. We will continue with good, aggressive pulmonary hygiene and continue his antibiotics of Rocephin and azithromycin. He had Alcantara catheter placed by Dr. Davila yesterday and he will keep that due to urinary retention until he has a followup with Dr. Davila on at 2:30 PM. He will also need close followup with Dr. Yoder, his primary care physician. He does have [facility] and they will need to do catheter care as well as catheter teaching. I have repeated his labs in the morning as well as a chest x-ray. I have discontinued his fluids as he is taking p.o. without any problems. Dr. Davila did agree to see him instead of Dr. Hung so he can have his followup appointments in [place]. Otherwise, we will continue to monitor the patient closely and follow as needed. Dr. Barbour is the collaborating physician and available for consultation. #[id number] [facility]
[2018-03-19] MEDS: INSULIN GLARGINE 50 UNIT SC SCH ×2 (10:58→21:40)
[2018-03-19] MEDS: POLYETHYLENE GLYCOL 3350 17 GM PCKT PO SCH (11:58)
[2018-03-19] MEDS: SODIUM CHLORIDE 0.9% (FLUSH) 10 ML SYG IV SCH ×2 (14:02→21:44)
[2018-03-19] MEDS ORDERED: SODIUM CHL 0.9% 50ML MIN-BAG+ 50 ML IVPB ONE (20:33)
[2018-03-19] MEDS ORDERED: SODIUM CHLORIDE 0.9% 250ML 250 ML ONE (20:33)
[2018-03-19] MEDS ORDERED: AZITHROMYCIN IV 500 MG VIAL IVPB ONE (20:34)
[2018-03-19] MEDS ORDERED: cefTRIAXone SODIUM 1 GM VIAL ONE (20:34)
[2018-03-19] MEDS: ENOXAPARIN SODIUM 40 MG/0.4 ML SYG SUBCU SCH (21:42)
[2018-03-19] MEDS: cefTRIAXone SODIUM 1 GM in SODIUM CHL 0.9% 50ML MIN-BAG+ 50 ML IVPB SCH (21:45)
[2018-03-20] MEDS: ACETAMINOPHEN 325 MG TAB PO PRN ×2 (00:40→08:33)
[2018-03-20] MEDS: AZITHROMYCIN IV 500 MG in SODIUM CHLORIDE 0.9% 250ML 250 ML IVPB SCH (02:09)
[2018-03-20] MEDS: PANTOPRAZOLE SODIUM IV 40 MG VIAL IV SCH (06:08)
--- NOTE | 2018-03-20 06:56 | RAD ---
Procedure: XR CHEST 1 VIEW Exam Date: 03/20/2018 Ordering Provider: MIRA CALHOUN Clinical Indication: pna Comparison: 03/19/2018 Findings: Borderline cardiomegaly. Aortic calcification. Right basilar atelectasis and/or infiltrate, slightly improved. Left basilar subsegmental atelectasis. No significant pleural effusion. No pneumothorax. No acute osseous abnormality. Impression: 1. Right basilar atelectasis and/or infiltrate, slightly improved from prior. Electronically signed by: Patrick Roman MD 03/20/2018 6:55 AM CDT
[2018-03-20] MEDS: INSULIN LISPRO 100 UNITS/ML PEN SUBCU SCH ×4 (07:38→20:53)
[2018-03-20] MEDS: INSULIN GLARGINE 50 UNIT SC SCH ×2 (08:03→20:55)
[2018-03-20] MEDS: PRIMIDONE 50 MG TAB PO SCH (08:04)
[2018-03-20] MEDS: POLYETHYLENE GLYCOL 3350 17 GM PCKT PO SCH (08:04)
[2018-03-20] MEDS: FUROSEMIDE 40 MG TAB PO SCH ×2 (08:04→20:51)
[2018-03-20] MEDS: TAMSULOSIN 0.4 MG CAP PO SCH (08:04)
[2018-03-20] MEDS: guaiFENesin ER TAB 600 MG TAB PO SCH ×2 (08:04→20:51)
[2018-03-20] MEDS: METOPROLOL SUCCINATE XL 100 MG TAB PO SCH (08:04)
[2018-03-20] MEDS: IPRATROPIUM/ALBUTEROL 3 ML VIAL INH SCH ×4 (08:24→20:32)
[2018-03-20] MEDS: SODIUM CHLORIDE 0.9% (FLUSH) 10 ML SYG IV SCH ×2 (08:32→20:52)
[2018-03-20] MEDS: NYSTATIN POWDER 15GM BTTL TOP SCH ×4 (08:34→20:53)
[2018-03-20] MEDS: ENALAPRIL MALEATE 5 MG TAB PO SCH (08:36)
[2018-03-20] MEDS ORDERED: SODIUM CHL 0.9% 50ML MIN-BAG+ 50 ML IVPB ONE (19:57)
[2018-03-20] MEDS ORDERED: cefTRIAXone SODIUM 1 GM VIAL ONE (19:58)
[2018-03-20] MEDS ORDERED: SODIUM CHLORIDE 0.9% 250ML 250 ML ONE (19:59)
[2018-03-20] MEDS ORDERED: AZITHROMYCIN IV 500 MG VIAL IVPB ONE (20:00)
[2018-03-20] MEDS ORDERED: PANTOPRAZOLE SODIUM TAB 40 MG PO ONE (20:01)
--- NOTE | 2018-03-20 20:15 | PN ---
DATE: 03/20/18 SUPERVISING PHYSICIAN: Calderon Barbour M.D. SUBJECTIVE: The patient has remained afebrile for the last 24 hours. He continues to have some shortness of breath and a little weakness, but currently he is sitting in the bedside chair without any difficulty and notes that he is feeling a little bit better than the previous days. OBJECTIVE: VITAL SIGNS: Temperature 98, pulse 79, blood pressure 130/80, respirations 20, satting 97% on room air. CHEST: Lung sounds are diminished towards the bases with some notable rhonchi to the right posterior aspect of the right lung, but no wheezing. HEART: Regular rate and rhythm. ABDOMEN: Soft but obese with no tenderness. Positive bowel sounds. GENITOURINARY: Alcantara catheter remains in place draining yellow clear urine. EXTREMITIES: There still remains a trace of pedal edema but no clubbing or cyanosis with pulses being bilaterally at 2+. NEUROLOGIC: He is alert and oriented times three. LABORATORY: White count 8,900, hemoglobin 13.9, hematocrit 41.8, platelet count 219,000. Differential shows to continue with a left shift. Chemistries today show normal electrolytes with potassium 4.9, BUN 39, creatinine 1.15. Blood sugars have been fairly elevated between 167 up to 304, magnesium is normal at 2.2, calcium 8.9. MICROBIOLOGY: Urine cultures remain negative at 48 hours. Final urine culture showed mixed microbial population present but no predominant organism, probably contaminants. Preliminary gram stain shows a few gram positive bella. RADIOLOGY: Chest x-ray per radiology interpretation of single view chest shows right basilar atelectasis and/or infiltrate slightly improved from previous exams. ASSESSMENT: 1. Sepsis secondary to right lower lobe pneumonia, community acquired, with admission temperature of 101.2, heart rate 112, respiratory rate 22 and white count 20,300 improving with fluids and IV antibiotics. 2. Nephrolithiasis with a 5 mm stone within the distal left ureter without hydronephrosis but a history of right nephrectomy due to renal carcinoma. The patient was seen in consultation with Dr. Smith on admission which recommends continued Alcantara placement until seen in followup. 3. Diabetes mellitus, type 2, stable, monitoring. 4. Progressive weakness with fever and dyspnea with exertion, likely related to #1, monitoring, showing some improvement with fluids. 5. Hypertension, stable but monitoring. 6. History of renal carcinoma with right nephrectomy. 7. Chronic osteoarthritis. 8. Obstructive sleep apnea, monitoring. 9. Depression on medications. PLAN: At this point hopefully be able to discharge him in the morning. Will continue to monitor his blood sugars and his vitals. Should he show without any fevers overnight, certainly will be able to discharge to continue outpatient management. I did talk to his daughter who was in agreement with discharge as she lives with the patient. He does remain on parenteral antibiotics including Rocephin and azithromycin. His Alcantara catheter with remain in place as per Dr. Davila's orders until he is seen in followup on at [address] Davila. If we can discharge tomorrow, he will need followup with Dr. Yoder, his primary care provider, next week. Until then will continue to monitor and treat as needed. #[id number] [facility]
[2018-03-20] MEDS: ENOXAPARIN SODIUM 40 MG/0.4 ML SYG SUBCU SCH (20:50)
[2018-03-20] MEDS: cefTRIAXone SODIUM 1 GM in SODIUM CHL 0.9% 50ML MIN-BAG+ 50 ML IVPB SCH (22:36)
[2018-03-21] MEDS: IV SET AND CAP CHANGE INJ INJ SCH (01:56)
[2018-03-21] MEDS: AZITHROMYCIN IV 500 MG in SODIUM CHLORIDE 0.9% 250ML 250 ML IVPB SCH (01:56)
[2018-03-21] MEDS ORDERED: PANTOPRAZOLE SODIUM TAB 40 MG PO SCH (06:30)
[2018-03-21] MEDS: INSULIN LISPRO 100 UNITS/ML PEN SUBCU SCH ×2 (07:07→11:56)
[2018-03-21] MEDS: ENALAPRIL MALEATE 5 MG TAB PO SCH (08:03)
[2018-03-21] MEDS: NYSTATIN POWDER 15GM BTTL TOP SCH (08:03)
[2018-03-21] MEDS: METOPROLOL SUCCINATE XL 100 MG TAB PO SCH (08:03)
[2018-03-21] MEDS: INSULIN GLARGINE 50 UNIT SC SCH (08:04)
[2018-03-21] MEDS: guaiFENesin ER TAB 600 MG TAB PO SCH (08:04)
[2018-03-21] MEDS: PRIMIDONE 50 MG TAB PO SCH (08:04)
[2018-03-21] MEDS: FUROSEMIDE 40 MG TAB PO SCH (08:04)
[2018-03-21] MEDS: TAMSULOSIN 0.4 MG CAP PO SCH (08:04)
[2018-03-21] MEDS: SODIUM CHLORIDE 0.9% (FLUSH) 10 ML SYG IV SCH (08:05)
[2018-03-21] MEDS: POLYETHYLENE GLYCOL 3350 17 GM PCKT PO SCH (08:05)
[2018-03-21] MEDS: IPRATROPIUM/ALBUTEROL 3 ML VIAL INH SCH ×2 (08:23→12:47)
[2018-03-21 10:04] VITALS: BP 160/72; TEMP 98.1; O2SAT 97
--- NOTE | 2018-03-23 21:25 | DS ---
SUPERVISING PHYSICIAN: Calderon Barbour M.D. ADMISSION DIAGNOSIS: 1. Sepsis due to right lower lobe pneumonia, community acquired. 2. Nephrolithiasis with a 5 mm stone in the distal left leg ureter without hydronephrosis with a history of right nephrectomy due to renal carcinoma. 3. Diabetes mellitus type 2. 4. Progressive weakness with fever and dyspnea with exertion most likely related to #1. 5. Hypertension. 6. History of renal carcinoma with right nephrectomy. 7. Osteoarthritis. 8. Obstructive sleep apnea. 9. Depression. DISCHARGE DIAGNOSIS: 1. Sepsis secondary to right lower lobe pneumonia, community acquired, with admission temperature of 101.2, heart rate 112, respiratory rate 22 and white count 20,300 improving with fluids and IV antibiotics. 2. Nephrolithiasis with a 5 mm stone within the distal left ureter without hydronephrosis but a history of right nephrectomy due to renal carcinoma. The patient was seen in consultation with Dr. Smith on admission which recommends continued Alcantara placement until seen in followup. 3. Diabetes mellitus, type 2, stable, monitoring. 4. Progressive weakness with fever and dyspnea with exertion, likely related to #1, monitoring, showing some improvement with fluids. 5. Hypertension, stable but monitoring. 6. History of renal carcinoma with right nephrectomy. 7. Chronic osteoarthritis. LABORATORY: White count on admission was 20,300 with a left shift and bandemia. Prior to discharge after treatment it had gone down to 8,900 with no more bands. Left shift was resolving and hemoglobin was 13.9, hematocrit 41.8 respective with platelet count 219,000. Coagulation studies were within normal limits. Chemistries on admission showed normal electrolytes which remained through hospitalization. BUN was 39 at discharge, creatinine 1.15. Blood sugars ranged between 50 and 304. Troponin was at 0.02. BNP of 96.7. Urinalysis showed just trace leukocyte esterase, 1 to 3 RBCs, 5 to 10 WBCs with 3 to 5 epithelials, 1+ bacteria. MICROBIOLOGY: Sputum culture final results showed abundant normal respiratory bella. Urine culture showed mixed microbial population present likely predominant organism probably contaminants for the urine. Blood cultures remain negative after 5 days. Influenza A and B were both negative. RADIOLOGY: Initially in the E. [facility]. he had a chest x-ray that showed no acute findings. No focal lung consolidations. He also had a hip x-ray and knee x- ray all on the right side all without any abnormalities seen. He also had abdominal and pelvic CT that showed right lower lobe pneumonia with a 5 mm stone in the distal left ureter without hydronephrosis. He had multiple chest x -rays. Last chest x-ray on prior date of discharge per radiology interpretation of a single view chest showed right basilar atelectasis and/or infiltrate slightly improved from previous exams. MEDICAL CONSULTATION: Urology. Please see Dr. Davila's note for details. HOSPITAL COURSE: Mr. Paul was admitted on 03/18/18 for right lower lobe pneumonia and a kidney stone. He was treated with antibiotics and showed good improvement clinically. He resolved his leukocytosis. He was on bronchial hygiene therapy. He also had a medical consultation with Dr. Davila who recommend a Alcantara placement to prevent any urinary retention. He tolerated the procedure well and on date of discharge it was felt like he had progressed clinically well enough to continue with outpatient management. PLAN: Mr. Paul was discharged on 03/21/18 with instructions to followup with his primary care provider, Dr. Yoder, in the following week on at 1430. He was to resume his home medications as instructed and return to the hospital if he had any concerning symptoms. Diet at discharge was diabetic diet as tolerated. Activity is as per Physical Therapy. Medications at discharge included: 1. Albuterol inhaler 1 puff inhaled every 4 hours as needed, 1 inhaler. 2. Azithromycin 500 mg daily for 2 days. 3. Cefdinir 300 mg twice daily for 7 days. 4. Guaifenesin 1200 mg tablets, 1/2 tablet twice a day for 14 days. DISPOSITION: The patient was discharged to the care of his family. Condition on discharge was stable and improved. #[id number] [facility]
== END 2018-03-21 12:29 | disposition home health service (06) | DRG 871 ==
LOC: ER 21:27 → MS 03-18 00:48
PROVIDERS: ADMIT Nurse Practitioner Acute Care; ATTEND Nurse Practitioner Family
DX: A41.9 Sepsis, unspecified organism (principal); J18.9 Pneumonia, unspecified organism; E66.2 Morbid (severe) obesity with alveolar hypoventilation; N20.1 Calculus of ureter; E11.9 Type 2 diabetes mellitus without complications; E78.5 Hyperlipidemia, unspecified; I10 Essential (primary) hypertension; E66.9 Obesity, unspecified; M19.90 Unspecified osteoarthritis, unspecified site; Z85.528 Personal history of other malignant neoplasm of kidney; Z90.5 Acquired absence of kidney; Z88.8 Allergy status to other drugs, medicaments and biological substances; F32.9 Major depressive disorder, single episode, unspecified; Z68.34 Body mass index [BMI] 34.0-34.9, adult

== ENCOUNTER → 2018-04-09 | Outpatient (CLI) | payer MEDICARE | LOC: NC 10:31 | PROVIDERS: ATTEND Family Medicine | DX: N39.0 Urinary tract infection, site not specified (principal) ==

== ENCOUNTER → 2018-04-30 | Outpatient (CLI) | payer MEDICARE ==
--- NOTE | 2018-04-30 22:47 | MRI ---
MRI right knee without contrast INDICATION: Knee pain weakness status post fall 4 days ago TECHNIQUE: Noncontrast MR imaging right knee standard protocol FINDINGS: Multifocal chondrosis of the patellofemoral joint up to grade 3-4 in the medial patellar facet and apex with mild subchondral edema. Low-grade surface chondrosis grade 2 midline trochlea. Moderate joint effusion. Interstitial partial tear proximal ACL. Mild interstitial partial tear/degeneration of the PCL. Minimal extensor tendinosis without rupture. Prominent intrasubstance degenerative change posterior horn medial meniscus. Mild degenerative free edge fraying body medial meniscus on the coronal images. Similar changes in the body lateral meniscus. Mild thickening of the collateral ligaments without rupture. Diffuse soft tissue edema especially lateral aspect of the knee. No acute fracture or destructive lesion. There is signal degradation throughout the exam limiting fine detail. Several small ossifications along the lower pole patella within and adjacent to the patellar tendon likely mild enthesophyte formation. No evidence of acute pivot shift injury. Diffuse muscle atrophy chronic in appearance throughout the knee likely from disuse or denervation. IMPRESSION: Diffuse edema especially lateral aspect of the knee without acute fracture or dislocation Moderate joint effusion Multifocal chondrosis especially patellofemoral joint Previous interstitial partial tear ACL and mild increased signal PCL without rupture Degenerative changes of the menisci Diffuse muscle atrophy Electronically signed by: Agapito Kang MD 04/30/2018 10:46 PM [employer]
== END ==
LOC: MRI 13:01
PROVIDERS: ATTEND Family Medicine
DX: M25.561 Pain in right knee (principal); R60.0 Localized edema; M94.261 Chondromalacia, right knee; M62.561 Muscle wasting and atrophy, not elsewhere classified, right lower leg; S83.511A Sprain of anterior cruciate ligament of right knee, initial encounter

== ENCOUNTER 2018-05-04 03:46 | Emergency (ER) | payer MEDICARE ==
[2018-05-04 04:03] VITALS: TEMP 96.2; O2SAT 99
--- NOTE | 2018-05-04 05:20 | RAD ---
EXAM DESCRIPTION: Single view of the chest CLINICAL HISTORY: recurrent falls, hx renal failure COMPARISON: 03/20/2018 FINDINGS: Single frontal view of the chest. Heart is upper limits of normal. Atherosclerotic calcification of the thoracic aorta. No consolidation, pneumothorax, or pleural effusion. Improved aeration of the right lung base. No acute osseous abnormalities. Upper abdominal soft tissues are unremarkable. IMPRESSION: 1. No acute pneumonic process identified. Electronically signed by: Donaldo Edmond 05/04/2018 5:19 AM [facility]
[2018-05-04] MEDS: FLUCONAZOLE 100 MG TAB PO ONE (06:08)
--- NOTE | 2018-05-04 06:38 | ED.PDOC ---
History of Present Illness - General Chief Complaint: General Stated Complaint: frequent falls Time Seen by Provider: 05/04/18 04:24 Source: patient, family Exam Limitations: no limitations - History of Present Illness Initial Comments: the patient is 77-year-old male presenting to the emergency room after having had another fall.the patient has had a history of having more recent falls over the last 3-4 months. Part of this is due to deconditioning. Also contributing recently is the fact that he is walking around with a Alcantara catheter which is disturbing his gait. The catheter was placed upon recommendation by Dr. Davila secondary to bladder outlet impedance by apparent prostate issues. Also of note was the fact that the patient had a 5 mm stone in the distal left ureter, but wasn't causing any evidence of obstruction at the time. He does not have a right kidney anymore secondary to removal due to renal cell carcinoma. Today the patient really does not have any focal complaints other than just mild persistent generalized weakness and some mild discomfort from skin tears to both elbows and the left wrist from the fall. He is moving all extremities well. Alcantara catheter is in place. He is not febrile. He is alert and oriented. Lungs are clear. He does take a diuretic. He does have +1 edema to bilateral lower extremities but this is actually significantly less than it has been before. The patient is largely sedentary and does have his legs down most of the day.no focal neurological changes. No syncope or near syncope. Timing/Duration: unsure, constant Severity: moderate Improving Factors: nothing Worsening Factors: nothing Associated Symptoms: malaise, weakness - generalized Allergies/Adverse Reactions: Allergies NO KNOWN ALLERGY Allergy (Verified 03/17/18 22:54) Home Medications: Ambulatory Orders Glipizide [Glipizide ER] 10 mg PO BID 05/06/14 Insulin Lispro (Human) [Humalog] 14 unit SC TID 05/06/14 Metoprolol Succinate [Metoprolol Succinate ER] 100 mg PO DAILY 05/06/14 Tamsulosin [Flomax] 0.8 mg PO QD 05/06/14 Acetaminophen [Tylenol] 500 mg PO PRN 03/17/18 Aspirin [Aspirin Childrens] 162 mg PO DAILY 03/17/18 Enalapril Maleate 0.5 mg PO DAILY 03/17/18 Furosemide Tab [Lasix Tab] 40 mg PO TID 03/17/18 Insulin Glargine [Toujeo Solostar] 50 units SC BID 03/17/18 Primidone 250 mg PO BID 03/17/18 Diclofenac Sodium (Topical) [Voltaren] 4 mg TOP QID 05/04/18 Finasteride [Proscar] 5 mg PO DAILY 05/04/18 Review of Systems - Review of Systems Constitutional: States: weakness - generalized EENTM: States: no symptoms reported Respiratory: States: no symptoms reported Cardiology: States: no symptoms reported Gastrointestinal/Abdominal: States: no symptoms reported Genitourinary: States: see HPI Musculoskeletal: States: no symptoms reported Skin: States: see HPI Neurological: States: no symptoms reported Endocrine: States: no symptoms reported All other Systems: No Change from Baseline Past Medical History (General) - Patient Medical History Hx Seizures: No Hx Stroke: Yes Hx Dementia: No Hx Asthma: No Hx of COPD: No Hx Cardiac Disorders: Yes - stent to left knee Hx Congestive Heart Failure: Yes Hx Pacemaker: No Hx Hypertension: Yes Hx Thyroid Disease: No Hx Diabetes: Yes Hx Gastroesophageal Reflux: No Hx Renal Disease: Yes Hx Cancer: Yes - renal canceer Hx of HIV: No Hx Hepatitis C: No Hx MRSA: No Surgical History: cholecystectomy - Vaccination History Hx Tetanus, Diphtheria Vaccination: No Hx Influenza Vaccination: No Hx Pneumococcal Vaccination: Yes - Social History Hx Tobacco Use: Yes Hx Chewing Tobacco Use: Yes - 1 can/week Hx Alcohol Use: No Hx Substance Use: No Hx Substance Use Treatment: No Hx Depression: No Hx Physical Abuse: No Hx Emotional Abuse: No Hx Suspected Abuse: No - Female History Patient : No - Triage Comment ED Triage Comment: Falling more frequently. Increased weakness Family Medical History - Family History Mother Living Status: Hx Cardiac Disease: Yes Hx Family Diabetes: Yes Father Living Status: Hx Family;Other: emphazema Physical Exam - Physical Exam General Appearance: Alert, Comfortable, No apparent distress Eye Exam: bilateral normal Ears, Nose, Throat: hearing grossly normal - chronically mild decreased hearing bilaterally, normal pharynx Neck: non-tender, supple Respiratory: lungs clear, normal breath sounds, no respiratory distress, no accessory muscle use Cardiovascular/Chest: normal peripheral pulses, regular rate, rhythm Peripheral Pulses: radial,right: 2+, radial,left: 2+, dorsalis pedis,right: 2+, dorsalis pedis,left: 2+ Gastrointestinal/Abdominal: non tender, soft Rectal Exam: deferred Back Exam: no CVA tenderness, no vertebral tenderness Extremity: normal range of motion, no calf tenderness, normal capillary refill, pedal edema - he does have +1 edema bilateral lower extremities which is less than on his previous exam Neurologic: field aide II-XII nml as tested, alert, normal mood/affect, oriented x 3 Skin Exam: normal color Comments: Vital Signs - 24 hr 05/04/18 05/04/18 05/04/18 03:58 05:09 05:44 Temperature 96.2 F L Pulse Rate [ 70 68 64 Right] Respiratory 20 20 Rate Blood Pressure 128/77 129/67 130/59 [Left Arm] O2 Sat by Pulse 99 99 Oximetry Progress - Progress Progress: 05/04/18 06:41 the patient is a 77-year-old male presenting to the emergency room after having tripped and fallen while trying to get around tonight. The patient does obviously have generalized deconditioning and some baseline gait instability due to that. Additionally he has been having to get around for the last month with a Alcantara catheter which certainly inhibits his gait. He has several skin tears to the upper extremities from the fall, which are being dressed. Laboratory work is unimpressive with the exception of the fact that the renal function is slightly worse. He does have a known distal ureteral stone in his only remaining ureter. he has a Alcantara in place to bypass impedance of the prostate. He has follow-up in the near future with his urologist for this problem. The patient is currently undergoing a CT scan without contrast to make sure that he has not developed new hydronephrosis or ureteral dilation in the interim, causing the worsening of renal function. It is possible that he may simply be taking too much Lasix in his current state in order to control what may essentially just be dependent edema. If this appears to be a case, then reducing the Lasix dose and using external compression devices as well as elevation of the lower extremities may be safer for him long- term. This patient would also some definitely benefit from outpatient physical rehabilitation which can be set up by his primary care doctor. He does have some yeast in his urine and has received a dose of Diflucan. He does have some white blood cells and red blood cells in his urine however nitrites are negative and leukocyte esterase is small and bacteria is only 1+. At this point I'm inclined to wait for a urine culture before starting antibiotics on this patient. It is essentially inevitable that he will have some bacteria in his urine given the presence of the Alcantara catheter and he does not appear to be septic or have any evidence of pyelonephritis clinically at this time. the patient will be picked up by the oncoming ER doctor. - Results/Orders Results/Orders: Laboratory Tests 05/04/18 05/04/18 05/04/18 04:30 04:50 04:50 WBC 9.4 RBC 4.57 L Hgb 13.8 L Hct 40.7 L MCV 89.1 MCH 30.1 MCHC 33.8 RDW 16.9 H Plt Count 200 MPV 7.9 Absolute Neuts (auto) 7.10 H Absolute Lymphs (auto) 1.20 Absolute Monos (auto) 0.80 Absolute Eos (auto) 0.20 Absolute Basos (auto) 0.10 Neutrophils % 75.2 Lymphocytes % 13.3 L Monocytes % 8.4 Eosinophils % 2.1 Basophils % 1.0 Sodium 135 Potassium 4.3 Chloride 104 Carbon Dioxide 23 Anion Gap 12.3 BUN 61 H Creatinine 1.34 H BUN/Creatinine Ratio 45.5 H Random Glucose 137 H Serum Osmolality 289.5 Lactic Acid Calcium 8.8 Magnesium 2.2 Total Bilirubin 0.3 AST 16 ALT 17 Alkaline Phosphatase 68 Creatine Kinase 18 L CK-MB (CK-2) 2.2 CK-MB (CK-2) % Not Reportable Troponin I < 0.02 B-Natriuretic Peptide 148.0 H Serum Total Protein 6.4 Albumin 3.2 Globulin 3.2 Albumin/Globulin Ratio 1.0 L Urine Color Yellow Urine Appearance Sl cloudy Urine pH 5.0 Ur Specific Force 1.015 Urine Protein 30 Urine Glucose (UA) Negative Urine Ketones Negative Urine Blood Large H Urine Nitrite Negative Urine Bilirubin Negative Urine Urobilinogen 0.2 Ur Leukocyte Esterase Small H Urine RBC 30-40 H Urine WBC 10-20 H Ur Epithelial Cells 3-5 Urine Bacteria 1+ Urine Mucus Trace Urine Yeast 2+ budding 05/04/18 04:50 WBC RBC Hgb Hct MCV MCH MCHC RDW Plt Count MPV Absolute Neuts (auto) Absolute Lymphs (auto) Absolute Monos (auto) Absolute Eos (auto) Absolute Basos (auto) Neutrophils % Lymphocytes % Monocytes % Eosinophils % Basophils % Sodium Potassium Chloride Carbon Dioxide Anion Gap BUN Creatinine BUN/Creatinine Ratio Random Glucose Serum Osmolality Lactic Acid 1.1 Calcium Magnesium Total Bilirubin AST ALT Alkaline Phosphatase Creatine Kinase CK-MB (CK-2) CK-MB (CK-2) % Troponin I B-Natriuretic Peptide Serum Total Protein Albumin Globulin Albumin/Globulin Ratio Urine Color Urine Appearance Urine pH Ur Specific Force Urine Protein Urine Glucose (UA) Urine Ketones Urine Blood Urine Nitrite Urine Bilirubin Urine Urobilinogen Ur Leukocyte Esterase Urine RBC Urine WBC Ur Epithelial Cells Urine Bacteria Urine Mucus Urine Yeast Departure - Departure Clinical Impression: Generalized weakness, Ureterolithiasis, Urinary retention due to benign prostatic hyperplasia, Skin tear Acute on chronic renal failure Qualifiers: Acute renal failure type: unspecified Chronic kidney disease stage: stage 3 ( moderate) Qualified Code(s): N17.9 - Acute kidney failure, unspecified; N18.3 - Chronic kidney disease, stage 3 (moderate); N18.3 - Chronic kidney disease, stage 3 (moderate); N18.3 - Chronic kidney disease, stage 3 (moderate) Fall at home Qualifiers: Encounter type: initial encounter Qualified Code(s): W19.XXXA - Unspecified fall, initial encounter; Y92.009 - Unspecified place in unspecified non- institutional (private) residence as the place of occurrence of the external cause; Y92.009 - Unspecified place in unspecified non-institutional (private) residence as the place of occurrence of the external cause Disposition: Discharge to Home or Self Care Condition: Fair Departure Forms: ED Discharge - Pt. Copy, Patient Portal Self Enrollment Referrals: MARIAH MARIA MD [Primary Care Provider] - 1-2 Weeks Home Medications: Ambulatory Orders Glipizide [Glipizide ER] 10 mg PO BID 05/06/14 Insulin Lispro (Human) [Humalog] 14 unit SC TID 05/06/14 Metoprolol Succinate [Metoprolol Succinate ER] 100 mg PO DAILY 05/06/14 Tamsulosin [Flomax] 0.8 mg PO QD 05/06/14 Acetaminophen [Tylenol] 500 mg PO PRN 03/17/18 Aspirin [Aspirin Childrens] 162 mg PO DAILY 03/17/18 Enalapril Maleate 0.5 mg PO DAILY 03/17/18 Furosemide Tab [Lasix Tab] 40 mg PO TID 03/17/18 Insulin Glargine [Toujeo Solostar] 50 units SC BID 03/17/18 Primidone 250 mg PO BID 03/17/18 Diclofenac Sodium (Topical) [Voltaren] 4 mg TOP QID 05/04/18 Finasteride [Proscar] 5 mg PO DAILY 05/04/18
--- NOTE | 2018-05-04 06:57 | CT ---
PROCEDURE: CT Abdomen and Pelvis Without Intravenous Contrast CLINICAL INDICATION: The patient is 77 years old and is Male; worse renal fxn, 1 kidney , known stone TECHNIQUE: Axial computed tomography images of the abdomen and pelvis without intravenous contrast. Sagittal and coronal reformatted images were created and reviewed. This exam was performed according to our departmental dose-optimization program, which includes automated exposure control, adjustment of the mA and/or kV according to patient size and/or use of iterative reconstruction technique. COMPARISON: March 17, 2018 FINDINGS: LUNG BASES: Subsegmental atelectasis or scarring at the left lung base. No focal lung consolidation. ABDOMEN: LIVER: Normal. GALLBLADDER AND BILE DUCTS: Cholecystectomy. No ductal dilation. PANCREAS: Normal. No ductal dilation. SPLEEN: Normal. No splenomegaly. ADRENALS: Normal. No mass. KIDNEYS AND URETERS: 5 mm calculus seen in the left ureterovesicular junction, slightly more distal in location compared to prior. No hydronephrosis. Right kidney surgically absent. STOMACH AND BOWEL: Colonic diverticulosis without evidence of diverticulitis. No obstruction. PELVIS: APPENDIX: No findings to suggest acute appendicitis. BLADDER: Bladder decompressed with Alcantara catheter in place. No stones. REPRODUCTIVE: Unremarkable as visualized. ABDOMEN and PELVIS: INTRAPERITONEAL SPACE: Normal. No free air. No significant fluid collection. BONES/JOINTS: Spine degenerative changes. No acute fracture. No dislocation. SOFT TISSUES: Fat-containing left inguinal hernia. VASCULATURE: Scattered atherosclerotic vascular calcifications. No abdominal aortic aneurysm. LYMPH NODES: Normal. No enlarged lymph nodes. IMPRESSION: 1. 5 mm calculus seen in the left ureterovesicular junction, slightly more distal in location compared to prior. No hydronephrosis. 2. Right kidney surgically absent. 3. Bladder decompressed with Alcantara catheter in place. 4. Colonic diverticulosis without evidence of diverticulitis. Electronically signed by: Denny Abarca MD 05/04/2018 6:55 AM [employer]
[2018-05-04 07:20] VITALS: BP 116/65
== END 2018-05-04 07:21 | disposition home or self-care (01) ==
LOC: ER 03:46
DX: R53.1 Weakness (principal); N17.9 Acute kidney failure, unspecified; N18.3 Chronic kidney disease, stage 3 (moderate); N20.1 Calculus of ureter; R33.9 Retention of urine, unspecified; N40.1 Benign prostatic hyperplasia with lower urinary tract symptoms; S61.512A Laceration without foreign body of left wrist, initial encounter; S51.001A Unspecified open wound of right elbow, initial encounter; S51.002A Unspecified open wound of left elbow, initial encounter; I13.0 Hypertensive heart and chronic kidney disease with heart failure and stage 1 through stage 4 chronic kidney disease, or unspecified chronic kidney disease; I50.9 Heart failure, unspecified; E11.22 Type 2 diabetes mellitus with diabetic chronic kidney disease; W19.XXXA Unspecified fall, initial encounter; Y92.009 Unspecified place in unspecified non-institutional (private) residence as the place of occurrence of the external cause; Z91.81 History of falling; Z85.528 Personal history of other malignant neoplasm of kidney; Z87.891 Personal history of nicotine dependence

== ENCOUNTER → 2018-06-10 | Outpatient (CLI) | payer MEDICARE | LOC: BFHH 15:35 | PROVIDERS: ATTEND Family Medicine | DX: N39.0 Urinary tract infection, site not specified (principal) ==

== ENCOUNTER 2018-06-27 14:19 | Emergency (ER) | payer MEDICARE ==
[2018-06-27 14:38] VITALS: TEMP 97.4
[2018-06-27] MEDS ORDERED: CHLORHEXIDINE GLUCONATE 4 % 15 ML UD TOP ONE (15:05)
--- NOTE | 2018-06-27 15:45 | RAD ---
EXAM DESCRIPTION: Shoulder,Left 2 or More Views CLINICAL HISTORY: 77 years Male shoulder pain COMPARISON: None. TECHNIQUE: LEFT SHOULDER two view FINDINGS: No acute fractures or dislocations identified. No osseous destructive lesions. Acromioclavicular joint appears maintained. Mild degenerative change at the AC joint. IMPRESSION: No acute fracture or dislocation identified. Electronically signed by: Chata Arenas MD 06/27/2018 3:43 PM [facility]
--- NOTE | 2018-06-27 15:55 | ED.PDOC ---
History of Present Illness - General Chief Complaint: General Stated Complaint: left shoulder pain Time Seen by Provider: 06/27/18 14:26 Source: patient, family Exam Limitations: no limitations - History of Present Illness Initial Comments: Patient presents with acute on chronic left shoulder pain for 24 hours. The pain is located inside the joint with a focus near the A-C joint. It is aching in nature. It does not hurt when he rests it but hurts when he moves it, especially elevation. He has full sensation in the entire left shoulder and arm. Denies history of cardiac disease or COPD. Distant history of smoking. Has IDDM. Timing/Duration: 24 hours Severity: moderate Improving Factors: rest Worsening Factors: movement Associated Symptoms: denies symptoms Allergies/Adverse Reactions: Allergies NO KNOWN ALLERGY Allergy (Verified 03/17/18 22:54) Home Medications: Ambulatory Orders Glipizide [Glipizide ER] 10 mg PO BID 05/06/14 Insulin Lispro (Human) [Humalog] 100 unit SC TID 05/06/14 Metoprolol Succinate [Metoprolol Succinate ER] 100 mg PO DAILY 05/06/14 Tamsulosin [Flomax] 0.4 mg PO BID 05/06/14 Acetaminophen [Tylenol] 500 mg PO Q8H PRN 03/17/18 Aspirin [Aspirin Childrens] 162 mg PO DAILY 03/17/18 Enalapril Maleate 5 mg PO DAILY 03/17/18 Furosemide Tab [Lasix Tab] 40 mg PO TID 03/17/18 Insulin Glargine [Toujeo Solostar] 50 units SC BID 03/17/18 Primidone 250 mg PO BID 03/17/18 Diclofenac Sodium (Topical) [Voltaren] 2 gm TOP QID PRN 05/04/18 Finasteride [Proscar] 5 mg PO BEDTIME 05/04/18 Albuterol Sulfate [Ventolin Hfa] 108 mcg IN PRN 06/27/18 Guaifenesin [Mucinex] 600 mg PO BEDTIME 06/27/18 Ibuprofen 1 - 2 mg PO Q4H PRN 06/27/18 Primidone 125 mg PO .BETWEEN 1-2 06/27/18 Review of Systems - Review of Systems Constitutional: States: no symptoms reported EENTM: States: no symptoms reported Respiratory: States: no symptoms reported Cardiology: States: no symptoms reported Gastrointestinal/Abdominal: States: no symptoms reported Genitourinary: States: no symptoms reported Musculoskeletal: States: see HPI Skin: States: no symptoms reported Neurological: States: no symptoms reported Endocrine: States: no symptoms reported Hematologic/Lymphatic: States: no symptoms reported Past Medical History (General) - Patient Medical History Hx Seizures: No Hx Stroke: Yes Hx Dementia: No Hx Asthma: No Hx of COPD: No Hx Cardiac Disorders: Yes - stent to left knee Hx Congestive Heart Failure: Yes Hx Pacemaker: No Hx Hypertension: Yes Hx Thyroid Disease: No Hx Diabetes: Yes - with Neuropathy Hx Gastroesophageal Reflux: No Hx Renal Disease: Yes Hx Cancer: Yes - renal canceer Hx of HIV: No Hx Hepatitis C: No Hx MRSA: No Surgical History: cholecystectomy - Vaccination History Hx Tetanus, Diphtheria Vaccination: No Hx Influenza Vaccination: No Hx Pneumococcal Vaccination: Yes - Social History Hx Tobacco Use: Yes Hx Chewing Tobacco Use: Yes - 1 can/week Hx Alcohol Use: No Hx Substance Use: No Hx Substance Use Treatment: No Hx Depression: No Hx Physical Abuse: No Hx Emotional Abuse: No Hx Suspected Abuse: No - Female History Patient : No Family Medical History - Family History Mother Living Status: Hx Cardiac Disease: Yes Hx Family Diabetes: Yes Father Living Status: Hx Family;Other: emphazema Physical Exam - Physical Exam General Appearance: Alert Respiratory: lungs clear, normal breath sounds Cardiovascular/Chest: normal peripheral pulses, regular rate, rhythm, no edema Gastrointestinal/Abdominal: normal bowel sounds, non tender, soft Back Exam: normal inspection, no CVA tenderness Extremity: other - TTP at the left A-C joint and deltoid. Patient can elevate the left arm but it is painful. Passive elevation is painful but "not as much". Full sensation throughout the entire left shoulder and arm. 2+ radial pulses. Capillar refill less than 2 seconds at left UE nail beds. Neurologic: no motor/sensory deficits, alert, normal mood/affect, oriented x 3 Progress - Progress Progress: 06/27/18 16:28 Laboratory Tests 06/27/18 06/27/18 06/27/18 14:26 14:26 14:27 WBC 8.4 RBC 4.53 L Hgb 13.7 L Hct 42.0 MCV 92.6 MCH 30.2 MCHC 32.7 L RDW 15.4 H Plt Count 204 MPV 8.0 Absolute Neuts (auto) 6.40 Absolute Lymphs (auto) 1.20 Absolute Monos (auto) 0.60 Absolute Eos (auto) 0.10 Absolute Basos (auto) 0.10 Neutrophils % 76.5 Lymphocytes % 14.0 L Monocytes % 7.0 Eosinophils % 1.8 Basophils % 0.7 Sodium 137 Potassium 5.1 H Chloride 104 Carbon Dioxide 25 Anion Gap 13.1 BUN 49 H Creatinine 1.26 BUN/Creatinine Ratio 38.9 H Random Glucose 115 H Serum Osmolality 287.7 Calcium 8.8 Total Bilirubin 0.5 AST 16 ALT 15 Alkaline Phosphatase 80 Creatine Kinase 19 L CK-MB (CK-2) 1.6 CK-MB (CK-2) % Not Reportable Troponin I < 0.02 B-Natriuretic Peptide Serum Total Protein 6.3 L Albumin 3.1 L Globulin 3.2 Albumin/Globulin Ratio 1.0 L 06/27/18 15:55 WBC RBC Hgb Hct MCV MCH MCHC RDW Plt Count MPV Absolute Neuts (auto) Absolute Lymphs (auto) Absolute Monos (auto) Absolute Eos (auto) Absolute Basos (auto) Neutrophils % Lymphocytes % Monocytes % Eosinophils % Basophils % Sodium Potassium Chloride Carbon Dioxide Anion Gap BUN Creatinine BUN/Creatinine Ratio Random Glucose Serum Osmolality Calcium Total Bilirubin AST ALT Alkaline Phosphatase Creatine Kinase CK-MB (CK-2) CK-MB (CK-2) % Troponin I B-Natriuretic Peptide 169.0 H Serum Total Protein Albumin Globulin Albumin/Globulin Ratio Radiographs of the left shoulder showed degenerative changes in the left A-C joint but no acute abnormality, fracture, nor dislocation. Patient refused pain medications. Care instructions given. E.R. warnings given. Questions were elicited and answered. Patient voiced understanding and agreement with the plan. Departure - Departure Clinical Impression: Shoulder joint pain Disposition: Discharge to Home or Self Care Condition: Good Departure Forms: ED Discharge - Pt. Copy, Patient Portal Self Enrollment Diet: diabetic diet Activity: other - as per your regular doctor Referrals: MARIAH MARIA MD [Primary Care Provider] - 1-2 Weeks Home Medications: Ambulatory Orders Glipizide [Glipizide ER] 10 mg PO BID 05/06/14 Insulin Lispro (Human) [Humalog] 100 unit SC TID 05/06/14 Metoprolol Succinate [Metoprolol Succinate ER] 100 mg PO DAILY 12/05/14 Tamsulosin [Flomax] 0.4 mg PO BID 05/06/14 Acetaminophen [Tylenol] 500 mg PO Q8H PRN 03/17/18 Aspirin [Aspirin Childrens] 162 mg PO DAILY 03/17/18 Enalapril Maleate 5 mg PO DAILY 03/17/18 Furosemide Tab [Lasix Tab] 40 mg PO TID 03/17/18 Insulin Glargine [Toujeo Solostar] 50 units SC BID 03/17/18 Primidone 250 mg PO BID 03/17/18 Diclofenac Sodium (Topical) [Voltaren] 2 gm TOP QID PRN 05/04/18 Finasteride [Proscar] 5 mg PO BEDTIME 05/04/18 Albuterol Sulfate [Ventolin Hfa] 108 mcg IN PRN 06/27/18 Guaifenesin [Mucinex] 600 mg PO BEDTIME 06/27/18 Ibuprofen 1 - 2 mg PO Q4H PRN 06/27/18 Primidone 125 mg PO .BETWEEN 1-2 06/27/18 Additional Instructions: See your regular doctor next week. Return to the emergency room for worsening symptoms.
[2018-06-27 16:43] VITALS: BP 143/66; O2SAT 95
== END 2018-06-27 16:43 | disposition home or self-care (01) ==
LOC: ER 14:19
DX: M25.512 Pain in left shoulder (principal); M19.012 Primary osteoarthritis, left shoulder; G89.29 Other chronic pain; E11.40 Type 2 diabetes mellitus with diabetic neuropathy, unspecified; I11.0 Hypertensive heart disease with heart failure; I50.9 Heart failure, unspecified; Z79.4 Long term (current) use of insulin; Z79.899 Other long term (current) drug therapy; Z79.82 Long term (current) use of aspirin; Z86.73 Personal history of transient ischemic attack (TIA), and cerebral infarction without residual deficits; Z85.528 Personal history of other malignant neoplasm of kidney; Z87.891 Personal history of nicotine dependence

== ENCOUNTER 2018-07-16 09:41 | Emergency (ER) | payer MEDICARE ==
[2018-07-16 10:09] VITALS: TEMP 97.9
--- NOTE | 2018-07-16 10:26 | RAD ---
Portable chest INDICATION: Weakness pneumonia COMPARISON: May 04 IMPRESSION: Slightly increased atelectasis or small infiltrate right base. Borderline heart size. No failure. No other focal infiltrate. No pleural effusion or pneumothorax. Consider follow-up. Electronically signed by: Agapito Kang MD 07/16/2018 10:24 AM [facility]
[2018-07-16 12:01] VITALS: O2SAT 98
[2018-07-16] MEDS ORDERED: PENICILLIN BENZATHINE 1.2 MU 1.2 MU/2 ML SYG IM ONE (12:46)
[2018-07-16] MEDS ORDERED: SULFA/TRIMETH 800/160 (DS) TAB 1 EA TAB PO ONE (12:46)
[2018-07-16] MEDS ORDERED: levoFLOXacin 500 MG TAB PO ONE (12:46)
[2018-07-16] MEDS ORDERED: OSELTAMIVIR 75 MG CAP PO ONE (13:18)
--- NOTE | 2018-07-16 13:21 | ED.PDOC ---
History of Present Illness - General Chief Complaint: General Stated Complaint: flu-like sx,weakness Time Seen by Provider: 07/16/18 09:58 Source: patient Exam Limitations: no limitations - History of Present Illness Initial Comments: The patient is a 77-year-old male brought inby healthcare worker secondary to several issues. The first is that the patient has had about 24 hours of fatigue and body aches along with a runny nose and mild cough and sore throat. Flu is prevalent in the area right now. Additionally over the past 2 weeks the patient has had a left upper extremity cellulitis that is superficial and is subsequently had several areas of pustules developingon other areas of the skin primarily currently at the mons pubis. Clinically this areas consi stent with hidradenitis suppurtiva. he is alert, oriented and in no distress. He jokes. No hypoxia. Lungs are clear. No evidence of any significant pain. Timing/Duration: unsure Severity: moderate Improving Factors: nothing Worsening Factors: nothing Associated Symptoms: cough, fever/chills, headaches, malaise, weakness Allergies/Adverse Reactions: Allergies NO KNOWN ALLERGY Allergy (Verified 03/17/18 22:54) Home Medications: Ambulatory Orders Glipizide [Glipizide ER] 10 mg PO BID 05/06/14 Insulin Lispro (Human) [Humalog] 100 unit SC TID 05/06/14 Metoprolol Succinate [Metoprolol Succinate ER] 100 mg PO DAILY 05/06/14 Tamsulosin [Flomax] 0.4 mg PO BID 05/06/14 Acetaminophen [Tylenol] 500 mg PO Q8H PRN 03/17/18 Aspirin [Aspirin Childrens] 162 mg PO DAILY 03/17/18 Enalapril Maleate 5 mg PO DAILY 03/17/18 Furosemide Tab [Lasix Tab] 40 mg PO BID 03/17/18 Insulin Glargine [Toujeo Solostar] 50 units SC BID 03/17/18 Primidone 250 mg PO TID 03/17/18 Diclofenac Sodium (Topical) [Voltaren] 2 gm TOP QID PRN 05/04/18 Finasteride [Proscar] 5 mg PO BEDTIME 05/04/18 Albuterol Sulfate [Ventolin Hfa] 108 mcg IN PRN 06/27/18 Oseltamivir Capsule [Tamiflu] 75 mg PO BID 5 Days #10 capsule 07/16/18 Sulfa/Trimeth 800/160 (Ds) Tab [Bactrim DS Tab] 1 ea PO BID #14 tab 07/16/18 levoFLOXacin [Levaquin] 500 mg PO DAILY #7 tab 07/16/18 Review of Systems - Review of Systems Constitutional: States: malaise EENTM: States: nose congestion, throat pain Respiratory: States: cough Cardiology: States: no symptoms reported Gastrointestinal/Abdominal: States: no symptoms reported Genitourinary: States: no symptoms reported Musculoskeletal: States: other - generalized myalgias Neurological: States: no symptoms reported Endocrine: States: no symptoms reported All other Systems: No Change from Baseline Past Medical History (General) - Patient Medical History Hx Seizures: No Hx Stroke: Yes Hx Dementia: No Hx Asthma: No Hx of COPD: No Hx Cardiac Disorders: Yes - stent to left knee Hx Congestive Heart Failure: Yes Hx Pacemaker: No Hx Hypertension: Yes Hx Thyroid Disease: No Hx Diabetes: Yes - with Neuropathy Hx Gastroesophageal Reflux: No Hx Renal Disease: Yes Hx Cancer: Yes - renal canceer Hx of HIV: No Hx Hepatitis C: No Hx MRSA: No Surgical History: cholecystectomy - Vaccination History Hx Tetanus, Diphtheria Vaccination: No Hx Influenza Vaccination: No Hx Pneumococcal Vaccination: Yes - Social History Hx Tobacco Use: Yes Hx Chewing Tobacco Use: Yes - 1 can/week Hx Alcohol Use: No Hx Substance Use: No Hx Substance Use Treatment: No Hx Depression: No Hx Physical Abuse: No Hx Emotional Abuse: No Hx Suspected Abuse: No - Female History Patient : No Family Medical History - Family History Mother Living Status: Hx Cardiac Disease: Yes Hx Family Diabetes: Yes Father Living Status: Hx Family;Other: emphazema Physical Exam - Physical Exam General Appearance: Alert, Comfortable, No apparent distress Eye Exam: bilateral normal Ears, Nose, Throat: hearing grossly normal, nasal congestion, pharyngeal erythema Neck: full range of motion, supple Respiratory: lungs clear, normal breath sounds, no respiratory distress, no accessory muscle use Cardiovascular/Chest: normal peripheral pulses, regular rate, rhythm, no edema Peripheral Pulses: radial,right: 2+, radial,left: 2+ Gastrointestinal/Abdominal: non tender, soft Rectal Exam: deferred Back Exam: no CVA tenderness, no vertebral tenderness Extremity: normal range of motion, non-tender, normal inspection, no pedal edema, normal capillary refill Neurologic: brand coordinator II-XII nml as tested, alert, normal mood/affect, oriented x 3 Skin Exam: other - see above Progress - Progress Progress: 07/16/18 13:22 the patient is a 77-year-old male presenting to emergency room with cellulitis and pustulosis that has been spreading over the last few weeks. His current issue is most consistent with hiradenitis suppurtiva. Additionally, even though he tested negative on the rapid test, he most likely does have influenza. Given the predominance in the community at this point in time he is going to be placed on Tamiflu as a treatment course. Needs to keep himself hydrated. He needs to try and move around so that he does not decondition. He is going to be placed on Bactrim and Levaquin for the next 7 days as well for the skin condition. No evidence of sepsis at this time. ER warnings were given for any worsening. Keep follow-up with primary care doctor early next week. - Results/Orders Results/Orders: chest x-ray shows no definitive infiltrate. No evidence of fluid overload. Rapid flu test is negative. 07/16/18 10:39 BLOOD CULTURE Stat Laboratory Results - last 24 hr 07/16/18 07/16/18 07/16/18 10:14 10:39 10:53 WBC RBC Hgb Hct MCV MCH MCHC RDW Plt Count MPV Absolute Neuts (auto) Absolute Lymphs (auto) Absolute Monos (auto) Absolute Eos (auto) Absolute Basos (auto) Neutrophils % Lymphocytes % Monocytes % Eosinophils % Basophils % PT INR PTT (SP) Sodium Potassium Chloride Carbon Dioxide Anion Gap BUN Creatinine BUN/Creatinine Ratio POC Glucose 106 H Random Glucose Serum Osmolality Lactic Acid 1.5 Calcium Magnesium Total Bilirubin AST ALT Alkaline Phosphatase Creatine Kinase CK-MB (CK-2) CK-MB (CK-2) % Troponin I B-Natriuretic Peptide Serum Total Protein Albumin Globulin Albumin/Globulin Ratio Urine Color Yellow Urine Appearance Clear Urine pH 5.5 Ur Specific [place] 1.010 Urine Protein Negative Urine Glucose (UA) Negative Urine Ketones Negative Urine Blood Negative Urine Nitrite Negative Urine Bilirubin Negative Urine Urobilinogen 0.2 Ur Leukocyte Esterase Trace H Urine RBC 0 Urine WBC 0-1 Ur Epithelial Cells 0 Urine Bacteria 0 07/16/18 07/16/18 07/16/18 12:15 12:15 12:15 WBC 15.1 H RBC 4.22 L Hgb 12.7 L Hct 37.9 L MCV 89.9 MCH 30.0 MCHC 33.4 RDW 14.5 Plt Count 253 MPV 7.7 Absolute Neuts (auto) 12.00 H Absolute Lymphs (auto) 1.80 Absolute Monos (auto) 1.10 H Absolute Eos (auto) 0.10 Absolute Basos (auto) 0.10 Neutrophils % 79.9 H Lymphocytes % 12.0 L Monocytes % 7.1 Eosinophils % 0.4 L Basophils % 0.6 PT 10.5 INR 1.05 PTT (SP) 28.3 Sodium 132 L Potassium 3.9 Chloride 99 L Carbon Dioxide 25 Anion Gap 11.9 L BUN 33 H Creatinine 0.98 BUN/Creatinine Ratio 33.7 H POC Glucose Random Glucose 60 L Serum Osmolality 269.6 L Lactic Acid Calcium 8.6 Magnesium 2.1 Total Bilirubin 0.6 AST 13 ALT 13 Alkaline Phosphatase 80 Creatine Kinase 19 L CK-MB (CK-2) 1.2 CK-MB (CK-2) % Not Reportable Troponin I < 0.02 B-Natriuretic Peptide 184.0 H Serum Total Protein 6.6 Albumin 3.2 Globulin 3.4 Albumin/Globulin Ratio 0.9 L Urine Color Urine Appearance Urine pH Ur Specific [place] Urine Protein Urine Glucose (UA) Urine Ketones Urine Blood Urine Nitrite Urine Bilirubin Urine Urobilinogen Ur Leukocyte Esterase Urine RBC Urine WBC Ur Epithelial Cells Urine Bacteria Departure - Departure Clinical Impression: Hidradenitis suppurativa, Influenza A Disposition: Discharge to Home or Self Care Condition: Fair Departure Forms: ED Discharge - Pt. Copy, Patient Portal Self Enrollment Instructions: Cellulitis (Skin Infection), Adult (DC), Flu, Adult (DC) Diet: diabetic diet Activity: increase activity as tolerated Referrals: MARIAH MARIA MD [Primary Care Provider] - 1-2 Weeks Prescriptions: levoFLOXacin [Levaquin] 500 mg PO DAILY #7 tab Oseltamivir Capsule [Tamiflu] 75 mg PO BID 5 Days #10 capsule Sulfa/Trimeth 800/160 (Ds) Tab [Bactrim DS Tab] 1 ea PO BID #14 tab Home Medications: Ambulatory Orders Glipizide [Glipizide ER] 10 mg PO BID 05/06/14 Insulin Lispro (Human) [Humalog] 100 unit SC TID 05/06/14 Metoprolol Succinate [Metoprolol Succinate ER] 100 mg PO DAILY 05/06/14 Tamsulosin [Flomax] 0.4 mg PO BID 05/06/14 Acetaminophen [Tylenol] 500 mg PO Q8H PRN 03/17/18 Aspirin [Aspirin Childrens] 162 mg PO DAILY 03/17/18 Enalapril Maleate 5 mg PO DAILY 03/17/18 Furosemide Tab [Lasix Tab] 40 mg PO BID 03/17/18 Insulin Glargine [Toujeo Solostar] 50 units SC BID 03/17/18 Primidone 250 mg PO TID 03/17/18 Diclofenac Sodium (Topical) [Voltaren] 2 gm TOP QID PRN 05/04/18 Finasteride [Proscar] 5 mg PO BEDTIME 05/04/18 Albuterol Sulfate [Ventolin Hfa] 108 mcg IN PRN 06/27/18 Oseltamivir Capsule [Tamiflu] 75 mg PO BID 5 Days #10 capsule 07/16/18 Sulfa/Trimeth 800/160 (Ds) Tab [Bactrim DS Tab] 1 ea PO BID #14 tab 07/16/18 levoFLOXacin [Levaquin] 500 mg PO DAILY #7 tab 07/16/18 Additional Instructions: the patient is a 77-year-old male presenting to emergency room with cellulitis and pustulosis that has been spreading over the last few weeks. His current issue is most consistent with hiradenitis suppurtiva. Additionally, even though he tested negative on the rapid test, he most likely does have influenza. Given the predominance in the community at this point in time he is going to be placed on Tamiflu as a treatment course. Needs to keep himself hydrated. He needs to try and move around so that he does not decondition. He is going to be placed on Bactrim and Levaquin for the next 7 days as well for the skin condition. No evidence of sepsis at this time. ER warnings were given for any worsening. Keep follow-up with primary care doctor early next week.
[2018-07-16 14:05] VITALS: BP 133/57
== END 2018-07-16 13:45 | disposition home or self-care (01) ==
LOC: ER 09:41
DX: J10.1 Influenza due to other identified influenza virus with other respiratory manifestations (principal); L73.2 Hidradenitis suppurativa; I50.9 Heart failure, unspecified; I11.0 Hypertensive heart disease with heart failure; E11.40 Type 2 diabetes mellitus with diabetic neuropathy, unspecified; Z85.528 Personal history of other malignant neoplasm of kidney; Z87.891 Personal history of nicotine dependence; Z86.73 Personal history of transient ischemic attack (TIA), and cerebral infarction without residual deficits; Z79.82 Long term (current) use of aspirin; Z79.4 Long term (current) use of insulin; Z79.899 Other long term (current) drug therapy
CPT/HCPCS: 36416; 71045; 80053; 81001; 82550; 82553; 82948; 83605; 83735; 83880; 84484; 85025; 85610; 85730; 87502; J0561

== ENCOUNTER 2018-08-18 16:40 | Inpatient (IN) | payer MEDICARE ==
--- NOTE | 2018-08-18 17:25 | RAD ---
EXAM DESCRIPTION: Chest,1 View CLINICAL HISTORY: WEAKNESS COMPARISON: July 16, 2018 FINDINGS: Cardiac silhouette is within normal limits. There is atherosclerosis. There is no focal parenchymal or pleural disease. There is no acute osseous process visualized. IMPRESSION: No evidence of acute cardiopulmonary disease. Electronically signed by: Fer Hester MD 08/18/2018 5:22 PM CDT
--- NOTE | 2018-08-18 18:00 | ED.PDOC ---
History of Present Illness - General Chief Complaint: General Stated Complaint: WEAKNESS Time Seen by Provider: 08/18/18 17:41 Source: patient, family Exam Limitations: no limitations - History of Present Illness Initial Comments: F X 2 D. WEAKNESS X 1 D. LIVES AT HOME WITH DAUGHTER. TODAY UNABLE TO VOID. CALLED URO, DR. NIETO, WHO SAID TO INSERT SOUSA; YIELDED 1200 ML OUT. DAUGHTER STATES PT NORMALLY AMBULATES BUT IS SO WEAK TODAY HE CANNOT AND SHE CANNOT HELP TRANSFER HIM AROUND THE HOUSE. Severity: severe Improving Factors: nothing Worsening Factors: nothing Associated Symptoms: denies symptoms Allergies/Adverse Reactions: Allergies NO KNOWN ALLERGY Allergy (Verified 08/18/18 16:51) Home Medications: Ambulatory Orders Glipizide [Glipizide ER] 10 mg PO BID 05/06/14 Insulin Lispro (Human) [Humalog] 100 unit SC TID 05/06/14 Metoprolol Succinate [Metoprolol Succinate ER] 100 mg PO DAILY 05/06/14 Tamsulosin [Flomax] 0.4 mg PO BID 05/06/14 Acetaminophen [Tylenol] 500 mg PO Q8H PRN 03/17/18 Aspirin [Aspirin Childrens] 162 mg PO DAILY 03/17/18 Enalapril Maleate 5 mg PO DAILY 03/17/18 Furosemide Tab [Lasix Tab] 40 mg PO TID 03/17/18 Insulin Glargine [Toujeo Solostar] 50 units SC BID 03/17/18 Primidone 250 mg PO TID 03/17/18 Diclofenac Sodium (Topical) [Voltaren] 2 gm TOP QID PRN 05/04/18 Finasteride [Proscar] 5 mg PO BEDTIME 05/04/18 Albuterol Sulfate [Ventolin Hfa] 108 mcg IN PRN 06/27/18 Sulfa/Trimeth 800/160 (Ds) Tab [Bactrim DS Tab] 1 unit PO BID #14 tab 08/18/18 Review of Systems - Review of Systems Constitutional: States: fever, malaise, weakness. Denies: chills EENTM: States: no symptoms reported Respiratory: States: no symptoms reported Cardiology: States: no symptoms reported Gastrointestinal/Abdominal: Denies: abdominal pain, constipation, nausea Genitourinary: States: other - RETENTION. Denies: frequency Skin: States: no symptoms reported Neurological: States: weakness. Denies: headache, paresthesia Endocrine: States: no symptoms reported Hematologic/Lymphatic: States: no symptoms reported All other Systems: Reviewed and Negative Past Medical History (General) - Patient Medical History Hx Seizures: No Hx Stroke: Yes Hx Dementia: No Hx Asthma: No Hx of COPD: No Hx Cardiac Disorders: Yes - stent to left knee Hx Congestive Heart Failure: Yes Hx Pacemaker: No Hx Hypertension: Yes Hx Thyroid Disease: No Hx Diabetes: Yes - with Neuropathy Hx Gastroesophageal Reflux: No Hx Renal Disease: Yes Hx Cancer: Yes - renal canceer Hx of HIV: No Hx Hepatitis C: No Hx MRSA: No Surgical History: cholecystectomy - Vaccination History Hx Tetanus, Diphtheria Vaccination: Yes Hx Influenza Vaccination: No Hx Pneumococcal Vaccination: No - Social History Hx Tobacco Use: No Hx Chewing Tobacco Use: Yes - 1 can/week Hx Alcohol Use: No Hx Substance Use: No Hx Substance Use Treatment: No Hx Depression: No Hx Physical Abuse: No Hx Emotional Abuse: No Hx Suspected Abuse: No - Female History Patient : No Family Medical History - Family History Mother Living Status: Hx Cardiac Disease: Yes Hx Family Diabetes: Yes Father Living Status: Hx Family;Other: emphazema Physical Exam - Physical Exam General Appearance: Alert, No apparent distress Eye Exam: bilateral normal Ears, Nose, Throat: normal ENT inspection, normal pharynx Neck: non-tender, full range of motion Respiratory: chest non-tender, lungs clear Cardiovascular/Chest: normal peripheral pulses, regular rate, rhythm Gastrointestinal/Abdominal: normal bowel sounds, soft, no pulsatile mass, other - TTP SUPRAPUBIC Rectal Exam: deferred Back Exam: normal inspection, no CVA tenderness Extremity: normal range of motion, non-tender, no pedal edema, no calf tenderness Neurologic: alert, normal mood/affect, oriented x 3 Skin Exam: normal color, warm/dry Lymphatic: no adenopathy Progress - Progress Progress: 08/18/18 18:31 PT HAS UTI, RESULTING IN HIS GENERAL WEAKNESS. FEVER X 2 D - FROM UTI. UR RETENTION - HH CALLED UROLOGIST TODAY, DR. NIETO. HE INSTRUCTED TO INSERT SOUSA AND LEAVE IN PLACE UNTIL PT F/U WITH HIM THIS COMING FRIDAY (IN 6 D). WEAKNESS - PT LIVES AT HOME AND DAUGHTER IS UNABLE TO TRANSFER HIM AND PT IS TO WEAK TO STAND CURRENTLY. THUS PT IS NEEDING ADMISSION FOR THE WEAKNESS AND UTI. (NOTE: DECISION WAS MADE TO ADMIT PT, THUS BACTRIM RX WAS DC'D.) THANK YOU, MR. [facility]NE[facility]NA AND [facility], FOR ACCEPTING FURTHER CARE OF OUR PATIENT. - EKG/XRAY/CT CT Ordered: No Departure - Departure Clinical Impression: Urinary retention due to benign prostatic hyperplasia, General weakness, Elevated BUN UTI (urinary tract infection) Qualifiers: Urinary tract infection type: acute cystitis Hematuria presence: with hematuria Qualified Code(s): N30.01 - Acute cystitis with hematuria Anemia Qualifiers: Anemia type: unspecified type Qualified Code(s): D64.9 - Anemia, unspecified Disposition: Admit Patient Condition: Good Departure Forms: Patient Portal Self Enrollment Referrals: MARIAH MARIA MD [Primary Care Provider] - 1-2 Weeks Prescriptions: Sulfa/Trimeth 800/160 (Ds) Tab [Bactrim DS Tab] 1 unit PO BID #14 tab Home Medications: Ambulatory Orders Glipizide [Glipizide ER] 10 mg PO BID 05/06/14 Insulin Lispro (Human) [Humalog] 100 unit SC TID 05/06/14 Metoprolol Succinate [Metoprolol Succinate ER] 100 mg PO DAILY 05/06/14 Tamsulosin [Flomax] 0.4 mg PO BID 05/06/14 Acetaminophen [Tylenol] 500 mg PO Q8H PRN 03/17/18 Aspirin [Aspirin Childrens] 162 mg PO DAILY 03/17/18 Enalapril Maleate 5 mg PO DAILY 03/17/18 Furosemide Tab [Lasix Tab] 40 mg PO TID 03/17/18 Insulin Glargine [Toujeo Solostar] 50 units SC BID 03/17/18 Primidone 250 mg PO TID 03/17/18 Diclofenac Sodium (Topical) [Voltaren] 2 gm TOP QID PRN 05/04/18 Finasteride [Proscar] 5 mg PO BEDTIME 05/04/18 Albuterol Sulfate [Ventolin Hfa] 108 mcg IN PRN 06/27/18 Sulfa/Trimeth 800/160 (Ds) Tab [Bactrim DS Tab] 1 unit PO BID #14 tab 08/18/18 Additional Instructions: . Decision To Admit - Decistion To Admit Decision to Admit Reason: Admit from ER Decision to Admit Date: 08/18/18 Decision to Admit Time: 19:09
[2018-08-18] MEDS ORDERED: cefTRIAXone SODIUM 1 GM VIAL IM ONE (18:36)
[2018-08-18] MEDS ORDERED: SODIUM CHLORIDE 0.9% 1000ML 1,000 ML IVS ONE (18:36)
[2018-08-18] MEDS ORDERED: cefTRIAXone SODIUM 1 GM in SODIUM CHL 0.9% 50ML MIN-BAG+ 50 ML IVPB ONE (18:59)
[2018-08-18] MEDS ORDERED: SODIUM CHL 0.9% 50ML MIN-BAG+ 50 ML IVPB ONE (18:59)
--- NOTE | 2018-08-18 19:43 | HP ---
SUPERVISING PHYSICIAN: Calderon Barbour MD CHIEF COMPLAINT: Weakness, shortness of breath, urinary retention. HISTORY OF PRESENT ILLNESS: This is a 77-year-old male patient who has had a two-day history of muscle weakness, shortness of breath as well as some urinary retention. All these pretty much coincided. He states he does have a history of this in the past and has had a Alcantara and Dr. Hung in [place] is his urologist. He was evaluated in the Emergency Room and shown to have a normal white count at 9.7. Coag studies were normal. Chemistries showed a low sodium of 134 and elevated BUN of 41. Urinalysis was done and showed a small amount of blood, moderate leukocyte esterase and 40 to 50 WBCs. Nitrites were negative. Due to the urinary tract infection and significant weakness, the patient was referred for admission. At time of examination, the patient is not in any distress, but he is visibly weak. He answers questions appropriately. PAST MEDICAL HISTORY: 1. Hypertension. 2. Hyperlipidemia. 3. Obesity. 4. Benign prostatic hypertrophy. 5. Type 2 diabetes mellitus. 6. Osteoarthritis. 7. Renal cell carcinoma. 8. Obstructive sleep apnea. PAST SURGICAL HISTORY: 1. Right sided nephrectomy. 2. Cholecystectomy. 3. Lumbar spine surgery. 4. Peripheral stent to the left lower extremity. MEDICATIONS: 1. Acetaminophen 500 mg p.o. q.8h. p.r.n. 2. Albuterol 108 mcg inhaled p.r.n. 3. Aspirin 162 mg p.o. daily. 4. Diclofenac topical (Voltaren Gel) 2 grams topical q.i.d. 5. Enalapril 5 mg p.o. daily. 6. Finasteride 5 mg p.o. at bedtime. 7. Lasix 40 mg p.o. t.i.d. 8. Glipizide 10 mg p.o. b.i.d. 9. Toujeo 50 units subcutaneously b.i.d. 10. Humalog per sliding scale a.c. and h.s. 11. Metoprolol 100 mg p.o. daily. 12. Primidone 250 mg p.o. t.i.d. 13. Flomax 0.4 mg p.o. b.i.d. ALLERGIES: NO KNOWN DRUG ALLERGIES. FAMILY HISTORY: Reviewed and noncontributory. SOCIAL HISTORY: He quit smoking multiple years ago. He does not drink any alcohol. No illicit drugs. REVIEW OF SYSTEMS: CONSTITUTIONAL: No fever or chills. Positive for malaise. HEENT: No headaches, vision changes, ear pain, nasal congestion or throat pain. RESPIRATORY: No cough, hemoptysis or pleuritic chest pain. He has had a little bit of shortness of breath. CARDIOVASCULAR: No chest pain, palpitations or peripheral edema. GASTROINTESTINAL: No nausea, vomiting, constipation or abdominal pain. GENITOURINARY: No dysuria, frequency, but he has had some urinary retention. HEMATOLOGIC: Positive for easy bruising, but no transfusion reaction. MUSCULOSKELETAL: Positive for some back pain, but no muscle cramps or joint swelling. ENDOCRINE: No polydipsia, polyuria or polyphagia. No heat or cold intolerance. NEUROLOGIC: No syncope, paresthesias or seizures. PHYSICAL EXAMINATION: VITAL SIGNS: Blood pressure 160/71. Heart rate 77. Respiratory rate 18. Temperature 97.7. Oxygen saturation 985. GENERAL: Mr. Paul is a 77-year-old male patient in no acute distress at this time. HEENT: Normocephalic, atraumatic. Pupils are equal and reactive. No nasal drainage. Throat with moist mucosa. NECK: Supple. Midline trachea. No jugular venous distention. CHEST: Symmetrical with equal rise and fall of the chest with inspiration and expiration. Lung sounds are clear to auscultation bilaterally. CARDIOVASCULAR: Regular rate and rhythm. Normal S1, S2. ABDOMEN: Soft, obese. Positive bowel sounds. No tenderness to palpation. No organomegaly. GENITOURINARY: Alcantara catheter in place. Genitalia with no abnormalities. EXTREMITIES: Lower extremities with no significant edema. Pulses 2+. Capillary refill is less than 2 seconds. LABORATORY: Chest x-ray done in the Emergency Room does not show any acute findings. Labs are as discussed in history of present illness. ASSESSMENT: 1. Urinary tract infection. 2. Muscle weakness. 3. Dehydration. 4. Diabetes mellitus, type 2. 5. Hypertension. PLAN: We will place the patient on cefepime b.i.d. and monitor the cultures and adjust accordingly. Physical therapy has been consulted for his muscle weakness which could be acute, but I feel like he may be actually increasingly less mobile, so he may benefit from physical therapy. Dehydration will be addressed with IV fluids. I am holding the Lasix for now. I will start sliding scale insulin as well. We will resume his other diabetes medications that he takes at home as well. Hypertension is being addressed by resuming his home medications as well. I placed him on Lovenox for DVT prophylaxis. We will repeat labs in the morning and monitor his progress. Hopefully, he can be discharged in the next 48 to 72 hours. #[id number] [facility]
[2018-08-18] MEDS ORDERED: SODIUM CHLORIDE 0.9% (FLUSH) 10 ML SYG IV PRN (21:02)
[2018-08-18] MEDS ORDERED: DEXTROSE 50% 25 GM/50 ML SYG IV PRN (21:06)
[2018-08-18] MEDS ORDERED: GLUCAGON INJ 1 MG VIAL SUBCU PRN (21:06)
[2018-08-18] MEDS: ENOXAPARIN SODIUM 40 MG/0.4 ML SYG SUBCU SCH (21:17)
[2018-08-18] MEDS: KCL 20 MEQ/NS 1,000 ML IVS PRN (21:17)
[2018-08-18] MEDS ORDERED: IV SET AND CAP CHANGE INJ INJ SCH (21:30)
[2018-08-19] MEDS ORDERED: SODIUM CHL 0.9% 50ML MIN-BAG+ 50 ML IVPB ONE ×3 (04:16→19:06)
[2018-08-19] MEDS ORDERED: CEFEPIME 2 GM VIAL ONE ×3 (04:16→19:06)
[2018-08-19] MEDS: KCL 20 MEQ/NS 1,000 ML IVS PRN ×2 (05:19→23:01)
[2018-08-19] MEDS: CEFEPIME 2 GM in SODIUM CHL 0.9% 50ML MIN-BAG+ 50 ML IVPB SCH ×2 (06:32→18:41)
[2018-08-19] MEDS ORDERED: glipiZIDE EXTENDED REL (XL) 5 MG TAB ONE (07:22)
[2018-08-19] MEDS ORDERED: PRIMIDONE 50 MG TAB PO ONE (07:23)
[2018-08-19] MEDS ORDERED: ENALAPRIL MALEATE 5 MG TAB ONE (07:23)
[2018-08-19] MEDS: INSULIN LISPRO 100 UNITS/ML PEN SUBCU SCH ×4 (08:34→20:57)
[2018-08-19] MEDS ORDERED: glipiZIDE EXTENDED REL (XL) 5 MG TAB PO SCH (09:00)
[2018-08-19] MEDS ORDERED: INSULIN GLARGINE 50 UNIT SC SCH (09:00)
[2018-08-19] MEDS: ASPIRIN (CHEWABLE) 81 MG TAB PO SCH (09:11)
[2018-08-19] MEDS: ENALAPRIL MALEATE 5 MG TAB PO SCH (09:11)
[2018-08-19] MEDS: METOPROLOL SUCCINATE XL 100 MG TAB PO SCH (09:11)
[2018-08-19] MEDS: TAMSULOSIN 0.4 MG CAP PO SCH ×2 (09:11→20:34)
[2018-08-19] MEDS: PRIMIDONE 50 MG TAB PO SCH ×3 (09:11→20:34)
--- NOTE | 2018-08-19 12:24 | RAD ---
Procedure: XR CHEST 1 VIEW Exam Date: 08/19/2018 Ordering Provider: Micah Lenz NP Clinical Indication: SOB, recent influenza like illness Comparison: 08/18/2018 Findings: Borderline cardiomegaly. Aortic calcification. No focal lung consolidation. No pleural effusion. No pneumothorax. No acute osseous abnormality. Impression: 1. No acute abnormality in the chest. Electronically signed by: Patrick Roman MD 08/19/2018 12:21 PM CDT
--- NOTE | 2018-08-19 12:43 | CT ---
Procedure: CT ABDOMEN PELVIS WITHOUT IV CONTRAST Exam Date: 08/19/2018 Ordering Provider: Micah Lenz NP Clinical Indication: LL abdominal pain Comparison: 05/04/2018 TECHNIQUE: 2.5mm images were taken through the abdomen and pelvis without the administration of nonionic intravenous contrast material. Oral contrast was not administered. Coronal and sagittal reformatted images were generated. This exam was performed according to our departmental dose optimization program which includes use of automated exposure control, adjustment of the mA and/or kV according to patient size and/or use of iterative reconstruction technique. FINDINGS: Lower chest: Bibasilar subsegmental atelectasis. Abdomen: Liver and biliary system: Liver has an unremarkable noncontrast appearance. Prior cholecystectomy. Spleen: Unremarkable Pancreas: Unremarkable Adrenal glands: Unremarkable Kidneys, ureters, bladder: Right kidney is surgically absent. No hydronephrosis in the left kidney. Alcantara catheter in the urinary bladder. There is diffuse thickening of the bladder wall. Gas within the bladder may be related to the Alcantara. Lymph nodes: No lymphadenopathy. Retroperitoneum, abdominal wall, peritoneal cavity: Mesenteric infiltration/stranding in the left lower quadrant is similar to prior. No ascites. No free air. Fat-containing right posterior lateral hernia. Vessels: No abdominal aortic aneurysm. Aortic calcification. Bowel: Colonic diverticulosis without evidence of diverticulitis. Small hiatal hernia. Small duodenal diverticulum. No bowel obstruction. Mural thickening of the rectum which can be further evaluated with colonoscopy if not performed recently. No findings to suggest acute appendicitis. Pelvic organs: Prostate calcifications. Bones: Multilevel spondylosis. IMPRESSION: 1. Diffuse thickening of the bladder wall is increase compared to prior, question cystitis. Gas within the bladder may be related to the Alcantara catheter. 2. Mural thickening of the rectum. This can be further evaluated with colonoscopy if not performed recently. 3. Colonic diverticulosis without evidence of diverticulitis. 4. Prior right nephrectomy and cholecystectomy. Electronically signed by: Patrick Roman MD 08/19/2018 12:40 PM CDT
[2018-08-19] MEDS: BIFIDOBACTERIUM INFANTIS 4 MG CAP PO SCH (18:41)
--- NOTE | 2018-08-19 20:04 | PN ---
DATE: 08/19/18 SUPERVISING PHYSICIAN: Calderon Barbour M.D. SUBJECTIVE: The patient continues to be extremely weak. It took 2 person max assist to even get the patient up to the bedside. He has had some episodes of diarrhea and is complaining of some left sided abdominal pains. OBJECTIVE: VITAL SIGNS: Temperature 99, blood pressure 121/67, respirations 16, satting 96% on room air. I's and O's show a negative balance of 227 with 923 in, 1150 out. Weight is 115.2 kg. GENERAL: The patient is very pleasant. Appears to be in no acute distress. He is alert. CHEST: Lungs were clear to auscultation bilaterally. HEART: Regular rate and rhythm. ABDOMEN: Obese, soft. Tender to palpation on the left side more towards the left lower quadrant. No rebound tenderness. Bowel sounds were hyperactive. EXTREMITIES: Showed no edema. NEUROLOGIC: He is alert and oriented times three. LABORATORY: CBC shows white count 8,400, hemoglobin 13.6, hematocrit 40.2, platelet count 225,000. Differential shows to be without a left shift. Chemistries show normal electrolytes with BUN 32, creatinine 0.9, glucose was low this morning at 50, calcium 8.7. MICROBIOLOGY: Urine culture is pending. RADIOLOGY: Chest x-ray and abdomen and pelvis CT scan pending. ASSESSMENT: 1. Acute urinary obstruction requiring placement of Alcantara. 2. Urinary tract infection secondary to acute urinary retention with a history of Enterococcus species group D and Proteus mirabilis requiring initiation of parenteral antibiotics with concern for multidrug resistant organisms based off the patient's history. 3. 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 4. Moderate dehydration requiring ongoing fluids. 5. Diabetes mellitus, type 2 with a hypoglycemic event. 6. Hypertension. PLAN: Will currently leave the patient on Cefepime and await culture results to further target antibiotic therapy. Will continue with IV fluids and closely monitor I's and O's, and repeat laboratory studies in the morning. Will continue with insulin sliding scale but hold his Toujeo and oral hypoglycemics due to the persistent hypoglycemia. In regards to his weakness, I discussed with the patient options of continued physical therapy after consultation with Physical Therapist, that the patient is not safe to go home due to his extreme weakness. Mr. Paul has endorsed that he would like to try to go to rehabilitation at [facility] in [place]. Consultation has been submitted and will await those results. Given the patient's advanced age and current state of weakness, and morbid obesity, certainly the patient is not at a point where he would be safe to discharge home even with family members. He has tried physical therapy but was not progressing as an outpatient, therefore it was recommended he do inpatient rehabilitation efforts through a more structured environment. Will await consultation with [facility] and continue antibiotics awaiting cultures. Until we can transition the patient back to outpatient management, will continue to monitor and treat as needed. [id number]
[2018-08-19] MEDS: FINASTERIDE 5 MG TAB PO SCH (20:34)
[2018-08-19] MEDS: ENOXAPARIN SODIUM 40 MG/0.4 ML SYG SUBCU SCH (21:02)
[2018-08-20] MEDS: CEFEPIME 2 GM in SODIUM CHL 0.9% 50ML MIN-BAG+ 50 ML IVPB SCH ×2 (06:32→18:05)
[2018-08-20] MEDS: INSULIN LISPRO 100 UNITS/ML PEN SUBCU SCH ×4 (07:46→20:51)
[2018-08-20] MEDS: ASPIRIN (CHEWABLE) 81 MG TAB PO SCH (08:03)
[2018-08-20] MEDS: ENALAPRIL MALEATE 5 MG TAB PO SCH (08:03)
[2018-08-20] MEDS: BIFIDOBACTERIUM INFANTIS 4 MG CAP PO SCH (08:04)
[2018-08-20] MEDS: METOPROLOL SUCCINATE XL 100 MG TAB PO SCH (08:04)
[2018-08-20] MEDS: TAMSULOSIN 0.4 MG CAP PO SCH ×2 (08:04→20:09)
[2018-08-20] MEDS: PRIMIDONE 50 MG TAB PO SCH ×3 (08:04→20:09)
[2018-08-20] MEDS: KCL 20 MEQ/NS 1,000 ML IVS PRN ×2 (09:56→20:03)
[2018-08-20] MEDS ORDERED: SODIUM CHL 0.9% 50ML MIN-BAG+ 50 ML IVPB ONE (17:17)
[2018-08-20] MEDS ORDERED: CEFEPIME 2 GM VIAL ONE (17:17)
[2018-08-20] MEDS ORDERED: ACETAMINOPHEN 325 MG TAB PO PRN ×2 (19:12→19:16)
[2018-08-20] MEDS: ENOXAPARIN SODIUM 40 MG/0.4 ML SYG SUBCU SCH ×2 (20:09→20:53)
[2018-08-20] MEDS: FINASTERIDE 5 MG TAB PO SCH (20:09)
[2018-08-20] MEDS ORDERED: levoFLOXacin 500MG IV 500 MG in PREMIX BAG 1 BAG IVPB ONE (20:35)
--- NOTE | 2018-08-20 20:42 | PN ---
DATE: 08/20/18 SUPERVISING PHYSICIAN: Calderon Barbour M.D. SUBJECTIVE: The patient remains extremely weak and is doing minimum work with Physical Therapy. He is not having any other complaints. No nausea or vomiting, diarrhea or constipation or chest pains. OBJECTIVE: VITAL SIGNS: Temperature 98, pulse 78, blood pressure 138/75, respirations 18, satting 96% on room air at rest. I's and O's show a positive balance of 520 with 1320 in, 800 out. Weight is 115.4 kg. GENERAL: The patient is lying in bed. He is asleep but easily awakened and once awake is alert and will converse easily. CHEST: Remains fairly clear, just continues to be diminished towards the bases. HEART: Regular rate and rhythm. ABDOMEN: Obese but soft, still has some tenderness overlying the area where he has his injection sites for his Toujeo. No rebound tenderness. Bowel sounds were normal. EXTREMITIES: Showing to be without any edema. NEUROLOGIC: He is alert and oriented times three. LABORATORY: Blood sugars range between 150 to 232. MICROBIOLOGY: Urine culture is still pending. RADIOLOGY: No additional radiographic studies today. ASSESSMENT: 1. Acute urinary obstruction requiring placement of Alcantara. 2. Urinary tract infection secondary to acute urinary retention with a history of Enterococcus species group D and Proteus mirabilis requiring initiation of parenteral antibiotics with concern for multidrug resistant organisms based off the patient's history with cultures continuing to be pending. 3. 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 4. Moderate dehydration requiring ongoing fluids. 5. Diabetes mellitus, type 2 with a hypoglycemic event. 6. Hypertension. PLAN: Will continue with antibiotic therapy at this point. Still awaiting final culture results or at least preliminary results to transition the patient to hopefully oral antibiotic with anticipation of discharging in the near future, either later today or tomorrow. He has been tentatively accepted to [facility] which again anticipate will discharge and transfer him tomorrow and transition him to oral medications with Cefdinir awaiting final culture results. I did discuss with the family that I will follow his microbiology through the weekend and notify the people at [facility] should he need to be changed on his antibiotic coverage. The family is very open to the suggestion of continued rehab and is very happy with the current plan of discharge. Will hold off on any additional labs other than glucoses as they have been stable. Again, hopefully discharge later tomorrow. Until then will continue to monitor and treat as needed. [facility][id number] [facility]
[2018-08-20] MEDS ORDERED: levoFLOXacin 500MG IV 100 ML IVPB ONE (20:44)
[2018-08-20] MEDS: ALBUTEROL SULFATE 2.5 MG/3 ML VIAL NEB SCH (20:55)
[2018-08-21] MEDS ORDERED: CEFEPIME 2 GM VIAL ONE (05:03)
[2018-08-21] MEDS ORDERED: SODIUM CHL 0.9% 50ML MIN-BAG+ 50 ML IVPB ONE (05:03)
[2018-08-21] MEDS: CEFEPIME 2 GM in SODIUM CHL 0.9% 50ML MIN-BAG+ 50 ML IVPB SCH (06:30)
[2018-08-21] MEDS: KCL 20 MEQ/NS 1,000 ML IVS PRN (06:30)
[2018-08-21] MEDS: INSULIN LISPRO 100 UNITS/ML PEN SUBCU SCH ×2 (07:54→12:03)
[2018-08-21] MEDS: ALBUTEROL SULFATE 2.5 MG/3 ML VIAL NEB SCH ×2 (08:42→12:55)
[2018-08-21] MEDS: ASPIRIN (CHEWABLE) 81 MG TAB PO SCH (09:19)
[2018-08-21] MEDS: METOPROLOL SUCCINATE XL 100 MG TAB PO SCH (09:19)
[2018-08-21] MEDS: ENALAPRIL MALEATE 5 MG TAB PO SCH (09:19)
[2018-08-21] MEDS: TAMSULOSIN 0.4 MG CAP PO SCH (09:19)
[2018-08-21] MEDS: BIFIDOBACTERIUM INFANTIS 4 MG CAP PO SCH (09:20)
[2018-08-21] MEDS: PRIMIDONE 50 MG TAB PO SCH (09:28)
[2018-08-21] MEDS ORDERED: SERTRALINE HCL 50 MG TAB PO SCH (12:00)
[2018-08-21 14:14] VITALS: BP 169/69; TEMP 97.6; O2SAT 95
--- NOTE | 2018-08-31 10:28 | DS ---
SUPERVISING PHYSICIAN: Calderon Barbour MD ADMISSION DIAGNOSIS: 1. Urinary tract infection. 2. Muscle weakness. 3. Dehydration. 4. Diabetes mellitus, type 2. 5. Hypertension. DISCHARGE DIAGNOSIS: 1. Acute urinary obstruction requiring placement of Alcantara. 2. Urinary tract infection secondary to acute urinary retention with final culture results showing Klebsiella pneumoniae fairly sensitive to all antibiotics with the patient discharged in ciprofloxacin and showing to be sensitive. 3. 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 4. Moderate dehydration requiring ongoing fluids. 5. Diabetes mellitus, type 2 with a hypoglycemic event. 6. Hypertension. REASON FOR HOSPITALIZATION: This is a 77-year-old male patient who has had a two-day history of muscle weakness, shortness of breath as well as some urinary retention. All these pretty much coincided. He states he does have a history of this in the past and has had a Alcantara and Dr. Hung in [place] is his urologist. He was evaluated in the Emergency Room and shown to have a normal white count at 9.7. Coag studies were normal. Chemistries showed a low sodium of 134 and elevated BUN of 41. Urinalysis was done and showed a small amount of blood, moderate leukocyte esterase and 40 to 50 WBCs. Nitrites were negative. Due to the urinary tract infection and significant weakness, the patient was referred for admission. At time of examination, the patient is not in any distress, but he is visibly weak. He answers questions appropriately. LABORATORY: White count on admission 9,700 without a left shift. At discharge, it was 5,800 without a left shift. Hemoglobin and hematocrit stable at 11.8 and 35.9, respectively. Platelet count 193,000. Coagulation studies showed normal PT and PTT. Chemistries on admission showed sodium 134, otherwise electrolytes were within normal limits. BUN 41, creatinine 1.09. At discharge, sodium was 134, BUN down to 22, creatinine 1.06. Blood sugars have been fairly stable between 108 to 232. Calcium normal at discharge at 8.4. Urinalysis on admission showed a small amount of blood, moderate leukocyte esterase and microscopic revealing 40 to 50 WBCs, 3+ bacteria, 0 to 1 RBCs. MICROBIOLOGY: Final urine culture result did show a Klebsiella pneumoniae that was sensitive to fluoroquinolones. RADIOLOGY: Initially on admission, he had a chest x-ray and per radiologic interpretation showed no evidence of acute cardiopulmonary doxycycline. After admission, he had an abdominopelvic CT completed without contrast with noted diffuse thickening of the bladder wall, increased from prior exam, question cystitis. There was mural thickening in the rectum. Colonic diverticulosis without evidence of diverticulitis. Prior right nephrectomy and cholecystectomy. Please see that report for full details. HOSPITAL COURSE: Mr. Paul was admitted for acute urinary tract infection secondary to urinary retention. He had a Alcantara catheter placed without any complications. He was started on antibiotic coverage initially with Rocephin and cefepime. Once cultures were completed showing to be sensitive to ciprofloxacin, the patient was changed to Levaquin and showed good clinical improvement. Arrangements were made to discharge the patient to [facility] in [place], [place]. It was felt the patient had clinically improved well enough to be discharged to continue with outpatient management. He was discharged with Alcantara catheter in place awaiting a urology consultation with urologist. PLAN: Mr. Paul was discharged to transfer to [facility] in [place], [place]. He was discharged with a Alcantara catheter in place with a leg bag. He was to followup with Dr. Yoder in one to two weeks and urology followup as well. Diet at discharge was diabetic diet as tolerated. Activity as per physical therapy to evaluate and treat. All medications were continued as on the MAR. MEDICATIONS AT DISCHARGE: 1. Ciprofloxacin 500 mg twice daily for 7 days, #14. 2. Zoloft 50 mg daily to be refilled by Dr. Yoder. CONDITION AT DISCHARGE: Stable and improving. DISPOSITION: [id number]
== END 2018-08-21 16:00 | DRG 690 ==
LOC: ER 16:40 → MS 19:42
PROVIDERS: ADMIT Nurse Practitioner; ATTEND Nurse Practitioner Family
DX: N39.0 Urinary tract infection, site not specified (principal); E87.1 Hypo-osmolality and hyponatremia; R33.8 Other retention of urine; E86.0 Dehydration; E11.649 Type 2 diabetes mellitus with hypoglycemia without coma; R19.7 Diarrhea, unspecified; I10 Essential (primary) hypertension; B96.1 Klebsiella pneumoniae [K. pneumoniae] as the cause of diseases classified elsewhere; D64.9 Anemia, unspecified; G72.89 Other specified myopathies; E11.40 Type 2 diabetes mellitus with diabetic neuropathy, unspecified; E78.5 Hyperlipidemia, unspecified; E66.9 Obesity, unspecified; N40.1 Benign prostatic hyperplasia with lower urinary tract symptoms; M19.90 Unspecified osteoarthritis, unspecified site; G47.33 Obstructive sleep apnea (adult) (pediatric); Z95.820 Peripheral vascular angioplasty status with implants and grafts; Z90.5 Acquired absence of kidney; Z85.528 Personal history of other malignant neoplasm of kidney; Z79.4 Long term (current) use of insulin; Z79.82 Long term (current) use of aspirin; Z79.899 Other long term (current) drug therapy; Z87.891 Personal history of nicotine dependence; Z68.35 Body mass index [BMI] 35.0-35.9, adult